=== PATIENT | male | born 1950 | race Caucasian/White ===

== ENCOUNTER 2018-03-16 14:26 | Inpatient (IN) | payer MEDICARE ==
[~2018-03-16] VITALS: Ht 198.1 cm; Wt 73.1 kg
[~2018-03-16 14:26] MED LIST: AZIT500T5 PO; DIAZ10TA PO; FLEXERIL PO; GABA-827 PO; IBUP-1223 PO; MORP30TA PO; MORP30TA3 PO; OXYCODONE PO; [UNRECOGNIZED DRUG - CODE] PO
[2018-03-16] MEDS ORDERED: ASPIRIN 81 MG TABLET CHEW ONE (15:17)
[2018-03-16 15:22] LABS: BASOPHILS # (AUTO) 0.03 x10^3/uL (0-0.1); BASOPHILS % (AUTO) 1 % (0-1); EOSINOPHILS # (AUTO) 0.09 x10^3/uL (0-0.4); EOSINOPHILS % (AUTO) 2 % (1-7); LYMPHOCYTES # (AUTO) 1.11 x10^3/uL (1-3.4); LYMPHOCYTES % (AUTO) 21 % (22-44); MD NO; MEAN CORPUSCULAR HEMOGLOBIN 31.2 pg (27.5-34.5); MEAN CORPUSCULAR HGB CONC 33.1 g/dL (33.2-36.2); MEAN CORPUSCULAR VOLUME 94.4 fL (81-97); MEAN PLATELET VOLUME 8.2 fL (7.4-10.4); MONOCYTES % (AUTO) 9 % (2-9); NEUTROPHILS # (AUTO) 3.68 x10^3/uL (1.8-6.8); NEUTROPHILS % (AUTO) 68 % (42-75); PLATELET COUNT 185 x10^3/uL (130-400); RED BLOOD COUNT 5.62 x10^6/uL (4.38-5.82); RED CELL DISTRIBUTION WIDTH 15.4 % (9.4-14.8); TROPONIN I < 0.015 ng/mL (0.000-0.045)
[2018-03-16 15:24] LABS: ALANINE AMINOTRANSFERASE 26 U/L (12-78); ALBUMIN 3.1 g/dL (3.4-5.0); ANION GAP 9 mmol/L (5-15); CALCIUM 7.9 mg/dL (8.5-10.1); CHLORIDE 106 mmol/L (98-107); CREATININE 0.96 mg/dL (0.7-1.3)
[2018-03-16 15:28] LABS: ALKALINE PHOSPHATASE 79 U/L (45-117); BILIRUBIN,TOTAL 0.7 mg/dL (0.2-1.0); TOTAL PROTEIN 7.9 g/dL (6.4-8.2)
[2018-03-16] MEDS ORDERED: SODIUM CHLORIDE FLUSH 10ML SYR IVF ONE (15:30)
[2018-03-16] MEDS ORDERED: ASPIRIN 81 MG TABLET CHEW PO ONE (15:30)
[2018-03-16] MEDS ORDERED: ONDANSETRON 2MG/ML, 2ML IVPush PRN (16:30)
[2018-03-16] MEDS ORDERED: BISACODYL 10 MG SUPP PR PRN (16:30)
[2018-03-16] MEDS ORDERED: ONDANSETRON ODT 4 MG PO PRN (16:30)
[2018-03-16] MEDS ORDERED: ENALAPRILAT 1.25 MG/ML, 2ML IVPush PRN (16:30)
[2018-03-16] MEDS ORDERED: DOCUSATE 100 MG CAPSULE PO PRN (16:30)
[2018-03-16] MEDS ORDERED: ACETAMINOPHEN 325 MG TABLET PO PRN (16:30)
[2018-03-16] MEDS ORDERED: ENOXAPARIN 40 MG/0.4 ML SQ SCH (16:30)
[2018-03-16] MEDS ORDERED: LABETALOL 5MG/ML, 20ML IVPush PRN (16:30)
[2018-03-16] MEDS ORDERED: OMNIPAQUE 350 MG/ML, 100ML BOTTLE ONE (16:47)
[2018-03-16 17:26] LABS: HEMOGLOBIN A1C 6.2 % (4.2-6.3)
[2018-03-16] MEDS ORDERED: ALBUTEROL SULFATE 2.5 MG/3 ML NPPB PRN (17:30)
[2018-03-16] MEDS ORDERED: ENOXAPARIN 40 MG/0.4 ML ONE (18:03)
[2018-03-16] MEDS ORDERED: HEPARIN 25,000 UNITS/500ML PMX 500 ML ONE (18:38)
[2018-03-16 18:53] VITALS: BP 127/88
[2018-03-16] MEDS ORDERED: HEPARIN 5,000 UNITS/ML, 1ML IV ONE (19:00)
[2018-03-16] MEDS: HEPARIN 25,000 UNITS/500ML PMX 500 ML IV PRN (20:17)
[2018-03-16] MEDS: NICOTINE 7 MG/24 HR PATCH.TD24 TD SCH (20:29)
[2018-03-16] MEDS: LACTULOSE 10 GM/15 ML UDC PO SCH (20:30)
[2018-03-16] MEDS: GABAPENTIN 400 MG CAPSULE PO SCH (20:30)
[2018-03-16] MEDS: OxyconTIN ER 10 MG TAB.ER PO SCH ×2 (20:30→21:00)
[2018-03-16] MEDS: DIAZEPAM 5 MG TABLET PO SCH ×2 (20:30→21:00)
[2018-03-16 20:39] LABS: TROPONIN I < 0.015 ng/mL (0.000-0.045)
[2018-03-16 22:26] VITALS: BP 127/88
[2018-03-17 00:42] VITALS: BP 93/61
[2018-03-17 02:32] LABS: BASOPHILS # (AUTO) 0.02 x10^3/uL (0-0.1); BASOPHILS % (AUTO) 0 % (0-1); EOSINOPHILS # (AUTO) 0.13 x10^3/uL (0-0.4); EOSINOPHILS % (AUTO) 2 % (1-7); LYMPHOCYTES # (AUTO) 1.38 x10^3/uL (1-3.4); LYMPHOCYTES % (AUTO) 24 % (22-44); MD NO; MEAN CORPUSCULAR HGB CONC 33.7 g/dL (33.2-36.2); MEAN PLATELET VOLUME 8.3 fL (7.4-10.4); MONOCYTES % (AUTO) 11 % (2-9); NEUTROPHILS # (AUTO) 3.51 x10^3/uL (1.8-6.8); NEUTROPHILS % (AUTO) 62 % (42-75); PLATELET COUNT 163 x10^3/uL (130-400); RED BLOOD COUNT 4.98 x10^6/uL (4.38-5.82); RED CELL DISTRIBUTION WIDTH 15.9 % (9.4-14.8)
[2018-03-17 02:45] LABS: ALANINE AMINOTRANSFERASE 18 U/L (12-78); ALBUMIN 2.4 g/dL (3.4-5.0); ANION GAP 6 mmol/L (5-15); CHLORIDE 111 mmol/L (98-107); CHOLESTEROL, TOTAL 136 mg/dL (140-239); CREATININE 0.96 mg/dL (0.7-1.3)
[2018-03-17 02:47] LABS: TROPONIN I < 0.015 ng/mL (0.000-0.045)
[2018-03-17 02:48] LABS: ALKALINE PHOSPHATASE 62 U/L (45-117); BILIRUBIN,TOTAL 0.5 mg/dL (0.2-1.0); HDL CHOL % 33 % (26-37); HDL CHOLESTEROL (DIRECT) 45 mg/dL (40-60); LDL CHOLESTEROL,CALCULATED 81 mg/dL (54-169); LDL/HDL RATIO 1.8 (0.5-3.0); TOTAL PROTEIN 6.2 g/dL (6.4-8.2); TRIGLYCERIDES 52 mg/dL (50-200); VLDL CHOLESTEROL 10 mg/dL (0-25)
[2018-03-17] MEDS: HEPARIN 5,000 UNITS/ML, 1ML IV PRN ×3 (03:36→17:19)
[2018-03-17 07:50] VITALS: BP 104/75
[2018-03-17] MEDS: LACTULOSE 10 GM/15 ML UDC PO SCH ×2 (09:00→20:06)
[2018-03-17] MEDS: OxyconTIN ER 10 MG TAB.ER PO SCH ×3 (09:17→20:22)
[2018-03-17] MEDS: SENNA/DOCUSATE TABLET PO SCH (09:17)
[2018-03-17] MEDS: GABAPENTIN 400 MG CAPSULE PO SCH ×3 (09:17→20:22)
[2018-03-17 09:54] LABS: MICROSCOPIC NOT IND
[2018-03-17 09:59] LABS: CULTURE INDICATED? NO
[2018-03-17 12:30] VITALS: BP 99/64
[2018-03-17 20:08] VITALS: BP 115/76
[2018-03-17] MEDS: DIAZEPAM 5 MG TABLET PO SCH (20:22)
[2018-03-17] MEDS: NICOTINE 7 MG/24 HR PATCH.TD24 TD SCH (20:22)
[2018-03-17] MEDS: HEPARIN 25,000 UNITS/500ML PMX 500 ML IV PRN (20:27)
[2018-03-18 00:33] VITALS: BP 105/65
[2018-03-18] MEDS: HEPARIN 5,000 UNITS/ML, 1ML IV PRN ×2 (06:15→13:06)
[2018-03-18 07:15] VITALS: BP 116/78
[2018-03-18] MEDS: LACTULOSE 10 GM/15 ML UDC PO SCH ×2 (08:27→19:47)
[2018-03-18] MEDS: GABAPENTIN 400 MG CAPSULE PO SCH ×3 (08:28→20:41)
[2018-03-18] MEDS: SENNA/DOCUSATE TABLET PO SCH (08:28)
[2018-03-18] MEDS: OxyconTIN ER 10 MG TAB.ER PO SCH ×3 (08:28→20:41)
[2018-03-18 13:00] VITALS: BP 104/69
[2018-03-18] MEDS ORDERED: APIXABAN 5 MG TABLET PO ONE (18:00)
[2018-03-18 20:29] VITALS: BP 102/61
[2018-03-18] MEDS: NICOTINE 7 MG/24 HR PATCH.TD24 TD SCH (20:41)
[2018-03-18] MEDS: DIAZEPAM 5 MG TABLET PO SCH (20:41)
[2018-03-19 01:35] VITALS: BP 104/69
[2018-03-19 07:58] VITALS: BP 96/61
[2018-03-19] MEDS: APIXABAN 5 MG TABLET PO SCH ×2 (10:40→20:37)
[2018-03-19] MEDS: GABAPENTIN 400 MG CAPSULE PO SCH ×3 (10:43→20:37)
[2018-03-19] MEDS: SENNA/DOCUSATE TABLET PO SCH (10:44)
[2018-03-19] MEDS: LACTULOSE 10 GM/15 ML UDC PO SCH ×2 (10:44→20:38)
[2018-03-19] MEDS: OxyconTIN ER 10 MG TAB.ER PO SCH ×3 (10:44→20:38)
[2018-03-19 12:18] LABS: BASOPHILS # (AUTO) 0.05 x10^3/uL (0-0.1); BASOPHILS % (AUTO) 1 % (0-1); EOSINOPHILS # (AUTO) 0.16 x10^3/uL (0-0.4); EOSINOPHILS % (AUTO) 3 % (1-7); LYMPHOCYTES # (AUTO) 1.32 x10^3/uL (1-3.4); LYMPHOCYTES % (AUTO) 28 % (22-44); MD NO; MEAN CORPUSCULAR HEMOGLOBIN 32.2 pg (27.5-34.5); MEAN CORPUSCULAR HGB CONC 33.4 g/dL (33.2-36.2); MEAN CORPUSCULAR VOLUME 96.3 fL (81-97); MEAN PLATELET VOLUME 8.2 fL (7.4-10.4); MONOCYTES # (AUTO) 0.57 x10^3/uL (0.2-0.8); MONOCYTES % (AUTO) 12 % (2-9); NEUTROPHILS # (AUTO) 2.71 x10^3/uL (1.8-6.8); NEUTROPHILS % (AUTO) 56 % (42-75); PLATELET COUNT 168 x10^3/uL (130-400); RED CELL DISTRIBUTION WIDTH 15.5 % (9.4-14.8)
[2018-03-19 12:29] LABS: ALBUMIN 2.8 g/dL (3.4-5.0); ANION GAP 4 mmol/L (5-15); CHLORIDE 106 mmol/L (98-107)
[2018-03-19 12:33] LABS: ALANINE AMINOTRANSFERASE 22 U/L (12-78); ALKALINE PHOSPHATASE 73 U/L (45-117); BILIRUBIN,TOTAL 0.5 mg/dL (0.2-1.0); CREATININE 0.96 mg/dL (0.7-1.3); TOTAL PROTEIN 7.2 g/dL (6.4-8.2)
[2018-03-19] MEDS ORDERED: DEXTROSE 4 GM TAB.CHEW PO PRN (13:30)
[2018-03-19] MEDS ORDERED: DEXTROSE 50%, 50ML SYRINGE IVPush PRN (13:30)
[2018-03-19] MEDS ORDERED: GLUCAGON 1 MG IM PRN (13:30)
[2018-03-19] MEDS ORDERED: SINCALIDE (KINEVAC) 5 MCG ONE (14:00)
[2018-03-19 16:54] VITALS: BP 106/64
[2018-03-19 20:26] VITALS: BP 91/63
[2018-03-19] MEDS: DIAZEPAM 5 MG TABLET PO SCH (20:38)
[2018-03-19] MEDS: SODIUM CHLORIDE FLUSH 10ML SYR IVF SCH (20:38)
[2018-03-19] MEDS: NICOTINE 7 MG/24 HR PATCH.TD24 TD SCH (20:57)
[2018-03-20 01:18] VITALS: BP 106/68
[2018-03-20 05:49] LABS: BASOPHILS # (AUTO) 0.04 x10^3/uL (0-0.1); BASOPHILS % (AUTO) 1 % (0-1); EOSINOPHILS % (AUTO) 4 % (1-7); LYMPHOCYTES # (AUTO) 1.82 x10^3/uL (1-3.4); LYMPHOCYTES % (AUTO) 34 % (22-44); MD NO; MEAN CORPUSCULAR HEMOGLOBIN 32.1 pg (27.5-34.5); MEAN CORPUSCULAR HGB CONC 33.4 g/dL (33.2-36.2); MEAN CORPUSCULAR VOLUME 95.9 fL (81-97); MEAN PLATELET VOLUME 8.3 fL (7.4-10.4); MONOCYTES # (AUTO) 0.66 x10^3/uL (0.2-0.8); MONOCYTES % (AUTO) 12 % (2-9); NEUTROPHILS # (AUTO) 2.63 x10^3/uL (1.8-6.8); NEUTROPHILS % (AUTO) 49 % (42-75); PLATELET COUNT 175 x10^3/uL (130-400); RED BLOOD COUNT 4.99 x10^6/uL (4.38-5.82); RED CELL DISTRIBUTION WIDTH 15.9 % (9.4-14.8)
[2018-03-20 05:58] LABS: CALCIUM 7.9 mg/dL (8.5-10.1); CHLORIDE 105 mmol/L (98-107)
[2018-03-20 06:02] LABS: ALANINE AMINOTRANSFERASE 22 U/L (12-78); ALBUMIN 2.7 g/dL (3.4-5.0); ALKALINE PHOSPHATASE 76 U/L (45-117); ANION GAP 3 mmol/L (5-15); BILIRUBIN,TOTAL 0.5 mg/dL (0.2-1.0); TOTAL PROTEIN 6.9 g/dL (6.4-8.2)
[2018-03-20 06:55] VITALS: BP 102/66
[2018-03-20 09:41] VITALS: BP 105/70
[2018-03-20] MEDS: LACTULOSE 10 GM/15 ML UDC PO SCH ×2 (09:51→21:00)
[2018-03-20] MEDS: GABAPENTIN 400 MG CAPSULE PO SCH ×3 (09:52→22:30)
[2018-03-20] MEDS: OxyconTIN ER 10 MG TAB.ER PO SCH ×3 (09:52→22:30)
[2018-03-20] MEDS: APIXABAN 5 MG TABLET PO SCH (09:52)
[2018-03-20] MEDS: SODIUM CHLORIDE FLUSH 10ML SYR IVF SCH ×2 (09:52→22:39)
[2018-03-20] MEDS: SENNA/DOCUSATE TABLET PO SCH (09:52)
[2018-03-20 13:45] VITALS: BP 111/71
[2018-03-20 19:00] VITALS: BP 99/55
[2018-03-20] MEDS ORDERED: HEPARIN 5,000 UNITS/ML, 1ML IV ONE (21:00)
[2018-03-20] MEDS: DIAZEPAM 5 MG TABLET PO SCH (22:30)
[2018-03-20] MEDS: NICOTINE 7 MG/24 HR PATCH.TD24 TD SCH (22:31)
[2018-03-20] MEDS: HEPARIN 25,000 UNITS/500ML PMX 500 ML IV PRN (22:41)
[2018-03-21 00:48] VITALS: BP 95/63
[2018-03-21 05:19] LABS: BASOPHILS # (AUTO) 0.04 x10^3/uL (0-0.1); BASOPHILS % (AUTO) 1 % (0-1); EOSINOPHILS # (AUTO) 0.26 x10^3/uL (0-0.4); EOSINOPHILS % (AUTO) 5 % (1-7); LYMPHOCYTES # (AUTO) 1.81 x10^3/uL (1-3.4); LYMPHOCYTES % (AUTO) 32 % (22-44); MD NO; MEAN CORPUSCULAR HGB CONC 33.5 g/dL (33.2-36.2); MEAN CORPUSCULAR VOLUME 95.4 fL (81-97); MEAN PLATELET VOLUME 7.9 fL (7.4-10.4); MONOCYTES % (AUTO) 11 % (2-9); NEUTROPHILS # (AUTO) 2.98 x10^3/uL (1.8-6.8); NEUTROPHILS % (AUTO) 52 % (42-75); PLATELET COUNT 165 x10^3/uL (130-400); RED CELL DISTRIBUTION WIDTH 15.7 % (9.4-14.8)
[2018-03-21 05:30] LABS: ALANINE AMINOTRANSFERASE 24 U/L (12-78); ALBUMIN 2.6 g/dL (3.4-5.0); ANION GAP 5 mmol/L (5-15); CALCIUM 8.2 mg/dL (8.5-10.1); CHLORIDE 104 mmol/L (98-107)
[2018-03-21 05:32] LABS: ALKALINE PHOSPHATASE 79 U/L (45-117); BILIRUBIN,TOTAL 0.6 mg/dL (0.2-1.0); CREATININE 1.06 mg/dL (0.7-1.3)
[2018-03-21] MEDS: HEPARIN 5,000 UNITS/ML, 1ML IV PRN ×2 (05:59→19:19)
[2018-03-21 07:55] VITALS: BP 96/60
[2018-03-21] MEDS: GABAPENTIN 400 MG CAPSULE PO SCH ×3 (08:26→21:55)
[2018-03-21] MEDS: SENNA/DOCUSATE TABLET PO SCH (08:27)
[2018-03-21] MEDS: OxyconTIN ER 10 MG TAB.ER PO SCH ×3 (08:27→21:55)
[2018-03-21] MEDS: LACTULOSE 10 GM/15 ML UDC PO SCH ×2 (08:28→21:54)
[2018-03-21] MEDS: SODIUM CHLORIDE FLUSH 10ML SYR IVF SCH ×2 (09:00→21:54)
[2018-03-21 11:46] VITALS: BP_SYST 92; BP_SYST 93; BP_SYST 94; BP_DIAS 58; BP_DIAS 60; BP_DIAS 68
[2018-03-21 13:05] VITALS: BP_SYST 110; BP_SYST 86; BP_DIAS 47; BP_DIAS 79
[2018-03-21] MEDS ORDERED: CEFAZOLIN PMX 1GM/50ML 50 ML IVPB ONE ×2 (14:00→17:00)
[2018-03-21] MEDS ORDERED: SODIUM CHLORIDE 0.9% 1,000 ML IV ONE (16:40)
[2018-03-21 19:06] VITALS: BP 98/63
[2018-03-21] MEDS: NICOTINE 7 MG/24 HR PATCH.TD24 TD SCH (20:30)
[2018-03-21] MEDS: DIAZEPAM 5 MG TABLET PO SCH (21:55)
[2018-03-21] MEDS: HEPARIN 25,000 UNITS/500ML PMX 500 ML IV PRN (22:02)
[2018-03-22] MEDS: SODIUM CHLORIDE 0.9% 1,000 ML IV SCH ×7 (00:29→14:05)
[2018-03-22 01:11] VITALS: BP 97/62
[2018-03-22] MEDS: SODIUM CHLORIDE FLUSH 10ML SYR IVF SCH ×2 (07:49→20:10)
[2018-03-22] MEDS: GABAPENTIN 400 MG CAPSULE PO SCH ×3 (07:56→19:57)
[2018-03-22] MEDS: LACTULOSE 10 GM/15 ML UDC PO SCH ×2 (07:56→19:56)
[2018-03-22] MEDS: OxyconTIN ER 10 MG TAB.ER PO SCH ×3 (07:56→19:57)
[2018-03-22] MEDS: SENNA/DOCUSATE TABLET PO SCH (07:56)
[2018-03-22 08:05] VITALS: BP 88/60
[2018-03-22 08:16] VITALS: BP 93/62
[2018-03-22] MEDS ORDERED: TICAGRELOR 90 MG TABLET ONE (11:12)
[2018-03-22] MEDS ORDERED: BIVALIRUDIN 250 MG ONE (11:12)
[2018-03-22] MEDS ORDERED: HEPARIN 1,000 UNITS/ML, 10ML ONE (11:12)
[2018-03-22] MEDS ORDERED: MIDAZOLAM 1 MG/ML, 5ML ONE ×2 (11:12→12:03)
[2018-03-22] MEDS ORDERED: FENTANYL PF 100 MCG/2ML ONE ×2 (11:12→12:03)
[2018-03-22] MEDS ORDERED: VERAPAMIL 2.5 MG/ML, 2ML ONE (11:12)
[2018-03-22] MEDS ORDERED: LIDOCAINE 2%, 2ML ONE (11:26)
[2018-03-22] MEDS ORDERED: SODIUM CHLORIDE 0.9% 1,000 ML IV SCH (11:56)
[2018-03-22] MEDS ORDERED: CEFAZOLIN PMX 1GM/50ML 50 ML ONE (12:03)
[2018-03-22] MEDS ORDERED: CEFAZOLIN 1,000 MG ONE (12:03)
[2018-03-22] MEDS ORDERED: LIDOCAINE/PF 1%, 30ML ONE (12:10)
[2018-03-22 13:58] VITALS: BP 129/83
[2018-03-22] MEDS ORDERED: ACETAMINOPHEN 325 MG TABLET PO PRN (14:00)
[2018-03-22] MEDS ORDERED: CEFAZOLIN PMX 1GM/50ML 50 ML IVPB SCH (14:00)
[2018-03-22 19:53] VITALS: BP 106/68
[2018-03-22] MEDS: CEFAZOLIN 1,000 MG in SODIUM CHLORIDE 0.9% 50 ML IVPB SCH (19:56)
[2018-03-22] MEDS: NICOTINE 7 MG/24 HR PATCH.TD24 TD SCH (19:59)
[2018-03-22 20:15] VITALS: BP 89/72
[2018-03-23] MEDS: SODIUM CHLORIDE 0.9% 1,000 ML IV SCH ×3 (00:40→16:40)
[2018-03-23 02:22] VITALS: BP 104/75
[2018-03-23] MEDS: CEFAZOLIN 1,000 MG in SODIUM CHLORIDE 0.9% 50 ML IVPB SCH (05:35)
[2018-03-23 05:51] LABS: ALANINE AMINOTRANSFERASE 27 U/L (12-78); ALBUMIN 2.7 g/dL (3.4-5.0); ANION GAP 3 mmol/L (5-15); CALCIUM 8.7 mg/dL (8.5-10.1); CHLORIDE 104 mmol/L (98-107)
[2018-03-23 05:54] LABS: ALKALINE PHOSPHATASE 64 U/L (45-117); BILIRUBIN,TOTAL 0.9 mg/dL (0.2-1.0); CREATININE 0.75 mg/dL (0.7-1.3); TOTAL PROTEIN 7.2 g/dL (6.4-8.2)
[2018-03-23 05:56] LABS: BASOPHILS # (AUTO) 0.03 x10^3/uL (0-0.1); BASOPHILS % (AUTO) 1 % (0-1); EOSINOPHILS # (AUTO) 0.26 x10^3/uL (0-0.4); EOSINOPHILS % (AUTO) 5 % (1-7); LYMPHOCYTES % (AUTO) 30 % (22-44); MD NO; MEAN CORPUSCULAR HEMOGLOBIN 31.9 pg (27.5-34.5); MEAN CORPUSCULAR HGB CONC 33.6 g/dL (33.2-36.2); MEAN CORPUSCULAR VOLUME 95.2 fL (81-97); MEAN PLATELET VOLUME 8.3 fL (7.4-10.4); MONOCYTES # (AUTO) 0.67 x10^3/uL (0.2-0.8); MONOCYTES % (AUTO) 13 % (2-9); NEUTROPHILS # (AUTO) 2.56 x10^3/uL (1.8-6.8); NEUTROPHILS % (AUTO) 51 % (42-75); PLATELET COUNT 154 x10^3/uL (130-400); RED BLOOD COUNT 4.97 x10^6/uL (4.38-5.82); RED CELL DISTRIBUTION WIDTH 15.6 % (9.4-14.8)
[2018-03-23 07:40] VITALS: BP 107/73
[2018-03-23] MEDS: GABAPENTIN 400 MG CAPSULE PO SCH ×3 (07:43→20:50)
[2018-03-23] MEDS: SENNA/DOCUSATE TABLET PO SCH (07:43)
[2018-03-23] MEDS: OxyconTIN ER 10 MG TAB.ER PO SCH ×3 (07:44→20:49)
[2018-03-23] MEDS: SODIUM CHLORIDE FLUSH 10ML SYR IVF SCH ×2 (07:44→20:52)
[2018-03-23] MEDS: APIXABAN 5 MG TABLET PO SCH ×2 (10:46→20:49)
[2018-03-23] MEDS: DOXYCYCLINE 100MG TABLET PO SCH ×2 (10:46→20:49)
[2018-03-23] MEDS: CEFTRIAXONE PMX 1GM/50ML 50 ML IV SCH (11:20)
[2018-03-23] MEDS: LACTULOSE 10 GM/15 ML UDC PO SCH ×2 (12:00→20:49)
[2018-03-23 14:05] VITALS: BP 94/62
[2018-03-23 20:25] VITALS: BP 96/56
[2018-03-23] MEDS: NICOTINE 7 MG/24 HR PATCH.TD24 TD SCH (20:50)
[2018-03-24] VITALS (9 sets, daily range): BP systolic 81–98; BP diastolic 34–67
[2018-03-24] MEDS: SODIUM CHLORIDE 0.9% 1,000 ML IV SCH (00:40)
[2018-03-24] MEDS ORDERED: SODIUM CHLORIDE 0.9%, 250ML IVBOLUS ONE ×2 (05:00→11:30)
[2018-03-24] MEDS: SODIUM CHLORIDE FLUSH 10ML SYR IVF SCH ×2 (08:58→20:45)
[2018-03-24] MEDS: SENNA/DOCUSATE TABLET PO SCH (08:58)
[2018-03-24] MEDS: LACTULOSE 10 GM/15 ML UDC PO SCH ×2 (08:58→20:43)
[2018-03-24] MEDS: GABAPENTIN 400 MG CAPSULE PO SCH (08:59)
[2018-03-24] MEDS: APIXABAN 5 MG TABLET PO SCH ×2 (08:59→20:43)
[2018-03-24] MEDS: DOXYCYCLINE 100MG TABLET PO SCH ×2 (08:59→20:44)
[2018-03-24] MEDS: OxyconTIN ER 10 MG TAB.ER PO SCH (08:59)
[2018-03-24] MEDS: CEFTRIAXONE PMX 1GM/50ML 50 ML IV SCH (12:03)
[2018-03-24] MEDS ORDERED: COSYNTROPIN 0.25 MG IM ONE (13:30)
[2018-03-24] MEDS: GABAPENTIN 300 MG CAPSULE PO SCH ×2 (16:00→20:44)
[2018-03-24 17:23] LABS: FREE T4 (FREE THYROXINE) 0.86 ng/dL (0.76-1.46); THYROID STIMULATING HORMONE 8.25 mIU/L (0.358-3.740)
[2018-03-24] MEDS: HYDROCORTISONE 100 MG INJ. IVPush SCH (17:36)
[2018-03-24] MEDS: NICOTINE 7 MG/24 HR PATCH.TD24 TD SCH (20:44)
[2018-03-24] MEDS: OxyconTIN ER 20 MG TAB.ER PO PRN (20:44)
[2018-03-25 01:02] VITALS: BP 91/60
[2018-03-25] MEDS: HYDROCORTISONE 100 MG INJ. IVPush SCH ×3 (01:07→17:00)
[2018-03-25 03:25] VITALS: BP 100/65
[2018-03-25] MEDS: LEVOTHYROXINE 25 MCG TABLET PO SCH (05:02)
[2018-03-25] MEDS: OxyconTIN ER 20 MG TAB.ER PO PRN (05:03)
[2018-03-25 07:16] LABS: BASOPHILS % (AUTO) 0 % (0-1); EOSINOPHILS % (AUTO) 0 % (1-7); LYMPHOCYTES # (AUTO) 0.84 x10^3/uL (1-3.4); LYMPHOCYTES % (AUTO) 10 % (22-44); MEAN CORPUSCULAR HEMOGLOBIN 31.5 pg (27.5-34.5); MEAN CORPUSCULAR HGB CONC 33.1 g/dL (33.2-36.2); MEAN CORPUSCULAR VOLUME 95.1 fL (81-97); MEAN PLATELET VOLUME 8.2 fL (7.4-10.4); MONOCYTES # (AUTO) 0.25 x10^3/uL (0.2-0.8); MONOCYTES % (AUTO) 3 % (2-9); NEUTROPHILS # (AUTO) 7.74 x10^3/uL (1.8-6.8); NEUTROPHILS % (AUTO) 88 % (42-75); PLATELET COUNT 166 x10^3/uL (130-400); RED BLOOD COUNT 5.45 x10^6/uL (4.38-5.82); RED CELL DISTRIBUTION WIDTH 15.5 % (9.4-14.8)
[2018-03-25 07:20] LABS: MD NO
[2018-03-25 07:28] LABS: ALANINE AMINOTRANSFERASE 32 U/L (12-78); ANION GAP 4 mmol/L (5-15); CALCIUM 8.8 mg/dL (8.5-10.1); CHLORIDE 104 mmol/L (98-107)
[2018-03-25 07:30] LABS: ALKALINE PHOSPHATASE 91 U/L (45-117); BILIRUBIN,TOTAL 0.5 mg/dL (0.2-1.0); CREATININE 0.94 mg/dL (0.7-1.3)
[2018-03-25 07:50] VITALS: BP 93/66
[2018-03-25] MEDS: SODIUM CHLORIDE FLUSH 10ML SYR IVF SCH ×2 (08:28→21:33)
[2018-03-25] MEDS: LACTULOSE 10 GM/15 ML UDC PO SCH ×2 (08:34→21:00)
[2018-03-25] MEDS: APIXABAN 5 MG TABLET PO SCH ×2 (08:34→21:33)
[2018-03-25] MEDS: DOXYCYCLINE 100MG TABLET PO SCH ×2 (08:34→21:34)
[2018-03-25] MEDS: GABAPENTIN 300 MG CAPSULE PO SCH ×3 (08:34→21:34)
[2018-03-25] MEDS: SENNA/DOCUSATE TABLET PO SCH (08:36)
[2018-03-25] MEDS ORDERED: APIXABAN 5 MG TABLET PO SCH (09:00)
[2018-03-25] MEDS ORDERED: OxyconTIN ER 15 MG TAB.ER PO SCH ×2 (09:30)
[2018-03-25] MEDS ORDERED: MORPHINE SULFATE 4 MG/ML, 1ML IVPush ONE (09:30)
[2018-03-25 09:58] VITALS: BP 112/75
[2018-03-25] MEDS: FLUDROCORTISONE 0.1 MG TABLET PO SCH (09:58)
[2018-03-25] MEDS: CEFTRIAXONE PMX 1GM/50ML 50 ML IV SCH (11:05)
[2018-03-25] MEDS ORDERED: OxyconTIN ER 20 MG TAB.ER ONE (12:53)
[2018-03-25] MEDS ORDERED: OxyconTIN ER 10 MG TAB.ER ONE ×2 (12:53→23:38)
[2018-03-25] MEDS: OxyconTIN ER 15 MG TAB.ER PO PRN ×2 (12:55→23:40)
[2018-03-25 13:25] VITALS: BP 93/62
[2018-03-25 20:23] VITALS: BP 89/59
[2018-03-25] MEDS: NICOTINE 7 MG/24 HR PATCH.TD24 TD SCH (21:33)
[2018-03-25] MEDS ORDERED: OMNIPAQUE 350 MG/ML, 100ML BOTTLE ONE (23:16)
[2018-03-26 00:11] VITALS: BP 99/66
[2018-03-26 04:34] LABS: BASOPHILS % (AUTO) 0 % (0-1); EOSINOPHILS % (AUTO) 0 % (1-7); LYMPHOCYTES % (AUTO) 8 % (22-44); MD NO; MEAN CORPUSCULAR HEMOGLOBIN 31.7 pg (27.5-34.5); MEAN CORPUSCULAR HGB CONC 33.2 g/dL (33.2-36.2); MEAN CORPUSCULAR VOLUME 95.6 fL (81-97); MEAN PLATELET VOLUME 8.8 fL (7.4-10.4); MONOCYTES # (AUTO) 0.31 x10^3/uL (0.2-0.8); MONOCYTES % (AUTO) 3 % (2-9); NEUTROPHILS # (AUTO) 10.53 x10^3/uL (1.8-6.8); NEUTROPHILS % (AUTO) 89 % (42-75); PLATELET COUNT 161 x10^3/uL (130-400); RED BLOOD COUNT 5.24 x10^6/uL (4.38-5.82); RED CELL DISTRIBUTION WIDTH 15.4 % (9.4-14.8)
[2018-03-26 04:42] LABS: ALBUMIN 2.9 g/dL (3.4-5.0); ANION GAP 5 mmol/L (5-15); CALCIUM 8.7 mg/dL (8.5-10.1); CHLORIDE 106 mmol/L (98-107)
[2018-03-26 04:43] LABS: CREATININE 0.78 mg/dL (0.7-1.3)
[2018-03-26] MEDS: LEVOTHYROXINE 25 MCG TABLET PO SCH (05:31)
[2018-03-26 07:38] VITALS: BP 97/71
[2018-03-26] MEDS ORDERED: OxyconTIN ER 10 MG TAB.ER ONE ×3 (08:57→20:23)
[2018-03-26] MEDS ORDERED: OxyconTIN ER 20 MG TAB.ER ONE ×2 (08:57→20:23)
[2018-03-26] MEDS: LACTULOSE 10 GM/15 ML UDC PO SCH ×2 (09:00→20:31)
[2018-03-26] MEDS: SENNA/DOCUSATE TABLET PO SCH (09:00)
[2018-03-26] MEDS: DOXYCYCLINE 100MG TABLET PO SCH ×2 (09:00→20:32)
[2018-03-26] MEDS: SODIUM CHLORIDE FLUSH 10ML SYR IVF SCH ×2 (09:01→20:30)
[2018-03-26] MEDS: APIXABAN 5 MG TABLET PO SCH ×2 (09:01→20:31)
[2018-03-26] MEDS: GABAPENTIN 300 MG CAPSULE PO SCH ×3 (09:01→20:31)
[2018-03-26] MEDS: FLUDROCORTISONE 0.1 MG TABLET PO SCH (09:01)
[2018-03-26] MEDS: OxyconTIN ER 15 MG TAB.ER PO PRN ×2 (09:02→20:33)
[2018-03-26] MEDS: CEFTRIAXONE PMX 1GM/50ML 50 ML IV SCH (11:41)
[2018-03-26 14:28] VITALS: BP 97/64
[2018-03-26 19:24] VITALS: BP 93/55
[2018-03-26] MEDS ORDERED: GABAPENTIN 400 MG CAPSULE ONE (20:22)
[2018-03-26] MEDS ORDERED: GABAPENTIN 100 MG CAPSULE ONE (20:23)
[2018-03-26] MEDS: NICOTINE 7 MG/24 HR PATCH.TD24 TD SCH (20:30)
[2018-03-27 00:15] VITALS: BP 106/70
[2018-03-27] MEDS: LEVOTHYROXINE 25 MCG TABLET PO SCH (06:00)
[2018-03-27 07:20] LABS: BASOPHILS # (AUTO) 0.05 x10^3/uL (0-0.1); BASOPHILS % (AUTO) 1 % (0-1); EOSINOPHILS # (AUTO) 0.04 x10^3/uL (0-0.4); EOSINOPHILS % (AUTO) 0 % (1-7); LYMPHOCYTES # (AUTO) 2.12 x10^3/uL (1-3.4); LYMPHOCYTES % (AUTO) 23 % (22-44); MD NO; MEAN CORPUSCULAR HEMOGLOBIN 31.8 pg (27.5-34.5); MEAN CORPUSCULAR HGB CONC 33.5 g/dL (33.2-36.2); MEAN PLATELET VOLUME 8.6 fL (7.4-10.4); MONOCYTES # (AUTO) 0.52 x10^3/uL (0.2-0.8); MONOCYTES % (AUTO) 6 % (2-9); NEUTROPHILS % (AUTO) 71 % (42-75); PLATELET COUNT 164 x10^3/uL (130-400); RED BLOOD COUNT 5.09 x10^6/uL (4.38-5.82); RED CELL DISTRIBUTION WIDTH 15.7 % (9.4-14.8)
[2018-03-27 07:30] LABS: ALBUMIN 2.8 g/dL (3.4-5.0); ANION GAP 5 mmol/L (5-15); CALCIUM 8.6 mg/dL (8.5-10.1); CHLORIDE 106 mmol/L (98-107); CREATININE 0.79 mg/dL (0.7-1.3)
[2018-03-27 07:41] VITALS: BP 126/75
[2018-03-27] MEDS ORDERED: CEFDINIR 300 MG CAPSULE PO SCH (09:00)
[2018-03-27] MEDS: SODIUM CHLORIDE FLUSH 10ML SYR IVF SCH (09:00)
[2018-03-27] MEDS: GABAPENTIN 300 MG CAPSULE PO SCH (10:24)
[2018-03-27] MEDS: LACTULOSE 10 GM/15 ML UDC PO SCH (10:24)
[2018-03-27] MEDS: APIXABAN 5 MG TABLET PO SCH (10:25)
[2018-03-27] MEDS: SENNA/DOCUSATE TABLET PO SCH (10:26)
[2018-03-27] MEDS: FLUDROCORTISONE 0.1 MG TABLET PO SCH (10:27)
[2018-03-27] MEDS: DOXYCYCLINE 100MG TABLET PO SCH (10:27)
[2018-03-27 12:34] VITALS: BP 129/80
[2018-03-27] MEDS ORDERED: CEFD300C37 PO (14:21)
[2018-03-27] MEDS ORDERED: DOXY100T PO (14:21)
[2018-03-27] MEDS ORDERED: PRED20TA PO (14:21)
[2018-03-27] MEDS ORDERED: FLUD0.1T PO (14:21)
[2018-03-27] MEDS ORDERED: APIX5TAB PO ×2 (14:21→14:23)
[2018-03-27] MEDS ORDERED: LEVO25TA2 PO (14:21)
== END 2018-03-27 16:14 | disposition home or self-care (01) | DRG 242 ==
LOC: ED 16:04 → EDIP 16:20 → 5SO 18:46 → DCLOUNGE 03-27 15:53
PROVIDERS: ADMIT Hospitalist; ATTEND Hospitalist
PROC: 0JH606Z Insertion of Pacemaker, Dual Chamber into Chest Subcutaneous Tissue and Fascia, Open Approach (ICD-10-PCS; principal; 2018-03-22)
PROC: 02H63JZ Insertion of Pacemaker Lead into Right Atrium, Percutaneous Approach (ICD-10-PCS; 2018-03-22)
PROC: 02HK3JZ Insertion of Pacemaker Lead into Right Ventricle, Percutaneous Approach (ICD-10-PCS; 2018-03-22)
PROC: 4A023N7 Measurement of Cardiac Sampling and Pressure, Left Heart, Percutaneous Approach (ICD-10-PCS; 2018-03-22)
PROC: B2111ZZ Fluoroscopy of Multiple Coronary Arteries using Low Osmolar Contrast (ICD-10-PCS; 2018-03-22)
PROC: B2151ZZ Fluoroscopy of Left Heart using Low Osmolar Contrast (ICD-10-PCS; 2018-03-22)
DX: I20.0 Unstable angina (principal); I26.99 Other pulmonary embolism without acute cor pulmonale; E43 Unspecified severe protein-calorie malnutrition; J18.9 Pneumonia, unspecified organism; I27.20 Pulmonary hypertension, unspecified; I50.30 Unspecified diastolic (congestive) heart failure; D75.1 Secondary polycythemia; J44.0 Chronic obstructive pulmonary disease with (acute) lower respiratory infection; R64 Cachexia; J98.11 Atelectasis; Z68.1 Body mass index [BMI] 19.9 or less, adult; R00.1 Bradycardia, unspecified; F17.210 Nicotine dependence, cigarettes, uncomplicated; G89.4 Chronic pain syndrome; Z79.82 Long term (current) use of aspirin; Z91.19 Patient's noncompliance with other medical treatment and regimen; Z71.6 Tobacco abuse counseling
CPT/HCPCS: 33208; 36415; 71045; 71275; 74177; 76705; 78227; 80048; 80053; 80061; 81003; 82040; 82533; 82962; 83036; 83690; 83735; 83880; 84100; 84439; 84443; 84484; 85025; 85520; 87040; 87070; 87205; 93005; 93306; 93458; 93970; 96372; 99156; 99291; C1769; C1779; C1785; C1892; C1894; J0583; J0690; J0696; J1644; J1650; J2250; J3010; J3490; Q9967; A9537; C9898; J0834; J1720; J2805; J7030; J7050; J7512

== ENCOUNTER 2018-04-17 13:59 | Inpatient (IN) | payer MEDICARE ==
[~2018-04-17] VITALS: Ht 198.1 cm; Wt 78.0 kg
[~2018-04-17 13:59] MED LIST changes: +APIX5TAB PO; +CEFD300C37 PO; +DOXY100T PO; +FLUD0.1T PO; +LEVO25TA2 PO; +PRED20TA PO
[2018-04-17] MEDS ORDERED: SODIUM CHLORIDE FLUSH 10ML SYR IVF ONE ×2 (14:30→15:00)
[2018-04-17] MEDS ORDERED: ALBUTEROL/IPRATROPIUM 2.5MG/0.5MG, 3 ML ONE (14:37)
[2018-04-17 14:42] LABS: BASOPHILS # (AUTO) 0.12 x10^3/uL (0-0.1); BASOPHILS % (AUTO) 1 % (0-1); EOSINOPHILS # (AUTO) 0.04 x10^3/uL (0-0.4); EOSINOPHILS % (AUTO) 0 % (1-7); LYMPHOCYTES # (AUTO) 0.73 x10^3/uL (1-3.4); LYMPHOCYTES % (AUTO) 7 % (22-44); MD NO; MEAN CORPUSCULAR HEMOGLOBIN 31.5 pg (27.5-34.5); MEAN CORPUSCULAR HGB CONC 32.9 g/dL (33.2-36.2); MEAN CORPUSCULAR VOLUME 95.7 fL (81-97); MEAN PLATELET VOLUME 8.4 fL (7.4-10.4); MONOCYTES # (AUTO) 0.57 x10^3/uL (0.2-0.8); MONOCYTES % (AUTO) 6 % (2-9); NEUTROPHILS # (AUTO) 8.74 x10^3/uL (1.8-6.8); NEUTROPHILS % (AUTO) 86 % (42-75); PLATELET COUNT 132 x10^3/uL (130-400); RED BLOOD COUNT 4.66 x10^6/uL (4.38-5.82); RED CELL DISTRIBUTION WIDTH 16.6 % (9.4-14.8)
[2018-04-17 14:52] LABS: ALANINE AMINOTRANSFERASE 42 U/L (12-78); ANION GAP 5 mmol/L (5-15); CHLORIDE 107 mmol/L (98-107); CREATININE 0.93 mg/dL (0.7-1.3)
[2018-04-17 14:55] LABS: ALKALINE PHOSPHATASE 88 U/L (45-117); BILIRUBIN,TOTAL 0.5 mg/dL (0.2-1.0); TOTAL PROTEIN 6.6 g/dL (6.4-8.2)
[2018-04-17] MEDS ORDERED: PIPERACILLIN/TAZO/PMX 3.375GM 50 ML IV ONE (15:00)
[2018-04-17] MEDS ORDERED: CARI350T PO (15:14)
[2018-04-17] MEDS ORDERED: MORPHINE IR PO (15:14)
[2018-04-17] MEDS ORDERED: DIAZ10TA4 PO (15:14)
[2018-04-17] MEDS ORDERED: MORPHINE ER PO (15:14)
[2018-04-17 15:23] LABS: INTERNATIONAL NORMALIZED RATIO 1.04 (0.93-1.1); PROTHROMBIN TIME 10.7 Seconds (9.6-11.5)
[2018-04-17] MEDS ORDERED: OMNIPAQUE 350 MG/ML, 100ML BOTTLE ONE (15:38)
[2018-04-17] MEDS ORDERED: PIPERACILLIN/TAZO/PMX 3.375GM 50 ML ONE (15:41)
[2018-04-17] MEDS ORDERED: ONDANSETRON 2MG/ML, 2ML IVPush PRN (16:00)
[2018-04-17] MEDS ORDERED: OxyconTIN ER 15 MG TAB.ER PO SCH (16:00)
[2018-04-17 16:41] VITALS: BP 130/73
[2018-04-17] MEDS ORDERED: OXYcodone IR 30 MG TABLET PO PRN (17:00)
[2018-04-17] MEDS: GABAPENTIN 400 MG CAPSULE PO SCH ×2 (17:15→23:11)
[2018-04-17 19:52] VITALS: BP 107/68
[2018-04-17] MEDS: ALBUTEROL/IPRATROPIUM 2.5MG/0.5MG, 3 ML NPPB SCH ×2 (20:17→23:01)
[2018-04-17] MEDS: CARISOPRODOL 350 MG TABLET PO SCH (20:27)
[2018-04-18 02:21] VITALS: BP 113/74
[2018-04-18 05:37] LABS: BASOPHILS # (AUTO) 0.01 x10^3/uL (0-0.1); BASOPHILS % (AUTO) 0 % (0-1); EOSINOPHILS # (AUTO) 0.11 x10^3/uL (0-0.4); EOSINOPHILS % (AUTO) 1 % (1-7); LYMPHOCYTES # (AUTO) 1.63 x10^3/uL (1-3.4); LYMPHOCYTES % (AUTO) 21 % (22-44); MD NO; MEAN CORPUSCULAR HEMOGLOBIN 31.8 pg (27.5-34.5); MEAN CORPUSCULAR HGB CONC 33.1 g/dL (33.2-36.2); MEAN CORPUSCULAR VOLUME 96.1 fL (81-97); MEAN PLATELET VOLUME 8.8 fL (7.4-10.4); MONOCYTES # (AUTO) 0.63 x10^3/uL (0.2-0.8); MONOCYTES % (AUTO) 8 % (2-9); NEUTROPHILS # (AUTO) 5.53 x10^3/uL (1.8-6.8); NEUTROPHILS % (AUTO) 70 % (42-75); PLATELET COUNT 109 x10^3/uL (130-400); RED CELL DISTRIBUTION WIDTH 16.5 % (9.4-14.8)
[2018-04-18] MEDS ORDERED: LEVOTHYROXINE 25 MCG TABLET PO SCH (06:00)
[2018-04-18 06:52] VITALS: BP 127/85
[2018-04-18] MEDS: ALBUTEROL/IPRATROPIUM 2.5MG/0.5MG, 3 ML NPPB SCH ×2 (07:08→11:00)
[2018-04-18] MEDS: GABAPENTIN 400 MG CAPSULE PO SCH (08:47)
[2018-04-18] MEDS: CARISOPRODOL 350 MG TABLET PO SCH (08:47)
[2018-04-18] MEDS ORDERED: SULF1TAB24 PO (08:55)
[2018-04-18 09:00] LABS: ANION GAP 6 mmol/L (5-15); CALCIUM 7.7 mg/dL (8.5-10.1); CHLORIDE 108 mmol/L (98-107); CREATININE 1.31 mg/dL (0.7-1.3)
[2018-04-18] MEDS ORDERED: FLUDROCORTISONE 0.1 MG TABLET PO SCH (09:00)
== END 2018-04-18 11:30 | disposition home or self-care (01) | DRG 177 ==
LOC: ED 14:49 → EDIP 14:50 → ED 15:53 → 3NW 16:21 → DCLOUNGE 04-18 11:16
PROVIDERS: ADMIT Internal Medicine; ATTEND Internal Medicine
DX: J69.0 Pneumonitis due to inhalation of food and vomit (principal); J96.00 Acute respiratory failure, unspecified whether with hypoxia or hypercapnia; R04.2 Hemoptysis; D68.9 Coagulation defect, unspecified; J44.0 Chronic obstructive pulmonary disease with (acute) lower respiratory infection; Z68.1 Body mass index [BMI] 19.9 or less, adult; E03.9 Hypothyroidism, unspecified; I95.89 Other hypotension; G89.29 Other chronic pain; F17.210 Nicotine dependence, cigarettes, uncomplicated; R63.4 Abnormal weight loss; R00.1 Bradycardia, unspecified; Z79.01 Long term (current) use of anticoagulants; Z86.711 Personal history of pulmonary embolism; Z87.01 Personal history of pneumonia (recurrent); Z95.0 Presence of cardiac pacemaker
CPT/HCPCS: 36415; 71045; 71275; 80048; 80053; 83605; 84100; 85025; 85610; 87040; 93005; 94640; 96365; J2543; J7620; Q9967; J7512

== ENCOUNTER 2018-06-18 22:56 | Inpatient (IN) | payer MEDICARE ==
[~2018-06-18] VITALS: Ht 198.1 cm; Wt 83.3 kg
[~2018-06-18 22:56] MED LIST changes: +CARI350T PO; +DIAZ10TA4 PO; +MORPHINE ER PO; +MORPHINE IR PO; +SULF1TAB24 PO
[2018-06-18] MEDS ORDERED: ALBUTEROL/IPRATROPIUM 2.5MG/0.5MG, 3 ML NPPB ONE (23:30)
[2018-06-18] MEDS ORDERED: SODIUM CHLORIDE FLUSH 10ML SYR IVF ONE (23:30)
[2018-06-18] MEDS ORDERED: ALBUTEROL/IPRATROPIUM 2.5MG/0.5MG, 3 ML ONE (23:45)
[2018-06-18 23:47] LABS: BASOPHILS # (AUTO) 0.06 x10^3/uL (0-0.1); BASOPHILS % (AUTO) 1 % (0-1); EOSINOPHILS # (AUTO) 0.28 x10^3/uL (0-0.4); EOSINOPHILS % (AUTO) 3 % (1-7); LYMPHOCYTES # (AUTO) 2.32 x10^3/uL (1-3.4); LYMPHOCYTES % (AUTO) 27 % (22-44); MD NO; MEAN CORPUSCULAR HEMOGLOBIN 32.1 pg (27.5-34.5); MEAN CORPUSCULAR HGB CONC 32.6 g/dL (33.2-36.2); MEAN CORPUSCULAR VOLUME 98.5 fL (81-97); MEAN PLATELET VOLUME 6.9 fL (7.4-10.4); MONOCYTES # (AUTO) 0.65 x10^3/uL (0.2-0.8); MONOCYTES % (AUTO) 8 % (2-9); NEUTROPHILS # (AUTO) 5.34 x10^3/uL (1.8-6.8); NEUTROPHILS % (AUTO) 62 % (42-75); PLATELET COUNT 227 x10^3/uL (130-400); RED BLOOD COUNT 4.41 x10^6/uL (4.38-5.82)
[2018-06-19] LABS: ALBUMIN 2.1 g/dL (3.4-5.0); ANION GAP 6 mmol/L (5-15); CALCIUM 7.4 mg/dL (8.5-10.1); CHLORIDE 109 mmol/L (98-107)
[2018-06-19 00:07] LABS: ALANINE AMINOTRANSFERASE 22 U/L (12-78); ALKALINE PHOSPHATASE 144 U/L (45-117); BILIRUBIN,TOTAL 0.7 mg/dL (0.2-1.0); CREATININE 1.19 mg/dL (0.7-1.3); TOTAL PROTEIN 7.7 g/dL (6.4-8.2); TROPONIN I < 0.015 ng/mL (0.000-0.045)
[2018-06-19 00:08] LABS: D-DIMER 13.84 ug/mlFEU (0.00-0.52); INTERNATIONAL NORMALIZED RATIO 1.17 (0.93-1.1)
[2018-06-19] MEDS ORDERED: OMNIPAQUE 350 MG/ML, 100ML BOTTLE ONE (00:55)
[2018-06-19] MEDS ORDERED: PIPERACILLIN/TAZO/PMX 3.375GM 50 ML ONE (01:22)
[2018-06-19] MEDS ORDERED: VANCOMYCIN 1,600 MG in SODIUM CHLORIDE 0.9% 250 ML IV ONE (01:30)
[2018-06-19] MEDS ORDERED: PIPERACILLIN/TAZO/PMX 3.375GM 50 ML IVPB ONE (01:30)
[2018-06-19] MEDS ORDERED: VANCOMYCIN PER PHARMACY IV ONE (01:30)
[2018-06-19] MEDS ORDERED: ONDANSETRON ODT 4 MG PO PRN (04:00)
[2018-06-19] MEDS: SODIUM CHLORIDE 0.9% 1,000 ML IV SCH ×2 (04:28→16:10)
[2018-06-19] MEDS ORDERED: ALBUTEROL/IPRATROPIUM 2.5MG/0.5MG, 3 ML NPPB PRN (04:30)
[2018-06-19] MEDS ORDERED: VANCOMYCIN PER PHARMACY MC PRN (04:30)
[2018-06-19] MEDS ORDERED: PHARMACOKINETIC MONITORING MC PRN (05:00)
[2018-06-19] MEDS ORDERED: PHARMACOKINETIC CONSULTATION MC ONE (05:00)
[2018-06-19 08:59] VITALS: BP 103/73
[2018-06-19] MEDS ORDERED: APIX5TAB PO (11:48)
[2018-06-19] MEDS ORDERED: [UNRECOGNIZED DRUG - CODE] PO (11:48)
[2018-06-19] MEDS: PIPERACILLIN/TAZO/PMX 3.375GM 50 ML IV SCH ×2 (12:11→18:42)
[2018-06-19 13:46] VITALS: BP 92/51
[2018-06-19 19:50] VITALS: BP 90/54
[2018-06-19] MEDS: GABAPENTIN 300 MG CAPSULE PO SCH (20:46)
[2018-06-19] MEDS: APIXABAN 5 MG TABLET PO SCH (20:46)
[2018-06-19] MEDS: CARISOPRODOL 350 MG TABLET PO SCH (20:46)
[2018-06-19] MEDS: VANCOMYCIN 1,600 MG in SODIUM CHLORIDE 0.9% 250 ML IV SCH (20:48)
[2018-06-20] MEDS: PIPERACILLIN/TAZO/PMX 3.375GM 50 ML IV SCH ×3 (01:34→18:28)
[2018-06-20 01:36] VITALS: BP 109/68
[2018-06-20 05:09] LABS: BASOPHILS # (AUTO) 0.09 x10^3/uL (0-0.1); BASOPHILS % (AUTO) 1 % (0-1); EOSINOPHILS # (AUTO) 0.08 x10^3/uL (0-0.4); EOSINOPHILS % (AUTO) 1 % (1-7); LYMPHOCYTES # (AUTO) 2.29 x10^3/uL (1-3.4); LYMPHOCYTES % (AUTO) 23 % (22-44); MD NO; MEAN CORPUSCULAR HEMOGLOBIN 32.1 pg (27.5-34.5); MEAN CORPUSCULAR HGB CONC 32.6 g/dL (33.2-36.2); MEAN CORPUSCULAR VOLUME 98.4 fL (81-97); MONOCYTES % (AUTO) 6 % (2-9); NEUTROPHILS # (AUTO) 6.96 x10^3/uL (1.8-6.8); NEUTROPHILS % (AUTO) 70 % (42-75); PLATELET COUNT 213 x10^3/uL (130-400); RED BLOOD COUNT 4.38 x10^6/uL (4.38-5.82); RED CELL DISTRIBUTION WIDTH 18.7 % (9.4-14.8)
[2018-06-20 05:27] LABS: CALCIUM 7.8 mg/dL (8.5-10.1); CREATININE 1.05 mg/dL (0.7-1.3)
[2018-06-20] MEDS: SODIUM CHLORIDE 0.9% 1,000 ML IV SCH ×2 (05:37→15:36)
[2018-06-20] MEDS: LEVOTHYROXINE 25 MCG TABLET PO SCH (05:37)
[2018-06-20 05:47] LABS: CHLORIDE 114 mmol/L (98-107)
[2018-06-20 05:50] LABS: ANION GAP 5 mmol/L (5-15)
[2018-06-20] MEDS: CARISOPRODOL 350 MG TABLET PO SCH ×2 (09:00→22:27)
[2018-06-20] MEDS: APIXABAN 5 MG TABLET PO SCH ×2 (09:00→22:27)
[2018-06-20] MEDS: FLUDROCORTISONE 0.1 MG TABLET PO SCH (09:00)
[2018-06-20 09:28] VITALS: BP 124/76
[2018-06-20] MEDS: OXYcodone IR 5MG TABLET PO PRN ×2 (10:33→18:25)
[2018-06-20] MEDS: DIAZEPAM 5 MG TABLET PO PRN ×2 (10:33→22:27)
[2018-06-20] MEDS: DIGOXIN 0.125 MG TABLET PO SCH (10:34)
[2018-06-20] MEDS: GABAPENTIN 300 MG CAPSULE PO SCH ×3 (10:34→21:00)
[2018-06-20] MEDS: VANCOMYCIN 1,600 MG in SODIUM CHLORIDE 0.9% 250 ML IV SCH (15:36)
[2018-06-20 15:44] VITALS: BP 110/54
[2018-06-20 20:24] VITALS: BP 111/75
[2018-06-21] MEDS: OXYcodone IR 5MG TABLET PO PRN ×3 (02:15→18:33)
[2018-06-21] MEDS: PIPERACILLIN/TAZO/PMX 3.375GM 50 ML IV SCH ×3 (02:16→18:34)
[2018-06-21] MEDS: GABAPENTIN 300 MG CAPSULE PO SCH ×4 (02:18→22:00)
[2018-06-21 02:26] VITALS: BP 108/78
[2018-06-21] MEDS: SODIUM CHLORIDE 0.9% 1,000 ML IV SCH ×3 (02:26→18:34)
[2018-06-21] MEDS: LEVOTHYROXINE 25 MCG TABLET PO SCH (06:10)
[2018-06-21 07:38] LABS: CHLORIDE 112 mmol/L (98-107); CREATININE 1.12 mg/dL (0.7-1.3)
[2018-06-21 07:42] VITALS: BP 121/87
[2018-06-21 07:45] LABS: BASOPHILS # (AUTO) 0.05 x10^3/uL (0-0.1); BASOPHILS % (AUTO) 1 % (0-1); EOSINOPHILS # (AUTO) 0.37 x10^3/uL (0-0.4); EOSINOPHILS % (AUTO) 5 % (1-7); LYMPHOCYTES % (AUTO) 39 % (22-44); MD NO; MEAN CORPUSCULAR HEMOGLOBIN 31.7 pg (27.5-34.5); MEAN CORPUSCULAR HGB CONC 32.1 g/dL (33.2-36.2); MEAN CORPUSCULAR VOLUME 98.9 fL (81-97); MEAN PLATELET VOLUME 7.3 fL (7.4-10.4); MONOCYTES # (AUTO) 0.52 x10^3/uL (0.2-0.8); MONOCYTES % (AUTO) 7 % (2-9); NEUTROPHILS # (AUTO) 3.78 x10^3/uL (1.8-6.8); NEUTROPHILS % (AUTO) 49 % (42-75); PLATELET COUNT 224 x10^3/uL (130-400); RED BLOOD COUNT 4.79 x10^6/uL (4.38-5.82); RED CELL DISTRIBUTION WIDTH 18.7 % (9.4-14.8)
[2018-06-21 07:49] LABS: ANION GAP 1 mmol/L (5-15)
[2018-06-21] MEDS: CARISOPRODOL 350 MG TABLET PO SCH ×2 (09:00→21:59)
[2018-06-21] MEDS: DIAZEPAM 5 MG TABLET PO PRN (10:23)
[2018-06-21] MEDS: FLUDROCORTISONE 0.1 MG TABLET PO SCH (10:23)
[2018-06-21] MEDS: VANCOMYCIN 1,600 MG in SODIUM CHLORIDE 0.9% 250 ML IV SCH (10:23)
[2018-06-21] MEDS: APIXABAN 5 MG TABLET PO SCH ×2 (10:23→21:59)
[2018-06-21] MEDS: DIGOXIN 0.125 MG TABLET PO SCH (10:23)
[2018-06-21] MEDS: methylPREDNISolone SOD SUCC 125 MG/2 ML IVPush SCH ×2 (10:30→18:33)
[2018-06-21 14:00] VITALS: BP 111/75
[2018-06-21 15:30] VITALS: BP 118/80
[2018-06-21 19:52] VITALS: BP 117/84
[2018-06-22 02:04] VITALS: BP 137/78
[2018-06-22] MEDS: methylPREDNISolone SOD SUCC 125 MG/2 ML IVPush SCH ×2 (02:18→10:10)
[2018-06-22] MEDS: PIPERACILLIN/TAZO/PMX 3.375GM 50 ML IV SCH ×3 (02:18→17:58)
[2018-06-22 02:22] VITALS: BP 114/79
[2018-06-22] MEDS: SODIUM CHLORIDE 0.9% 1,000 ML IV SCH (03:48)
[2018-06-22] MEDS: VANCOMYCIN 1,600 MG in SODIUM CHLORIDE 0.9% 250 ML IV SCH ×2 (04:40→22:30)
[2018-06-22 05:04] LABS: BASOPHILS # (AUTO) 0.01 x10^3/uL (0-0.1); BASOPHILS % (AUTO) 0 % (0-1); EOSINOPHILS % (AUTO) 0 % (1-7); LYMPHOCYTES # (AUTO) 0.97 x10^3/uL (1-3.4); LYMPHOCYTES % (AUTO) 15 % (22-44); MD NO; MEAN CORPUSCULAR HEMOGLOBIN 32.3 pg (27.5-34.5); MEAN CORPUSCULAR HGB CONC 32.5 g/dL (33.2-36.2); MEAN CORPUSCULAR VOLUME 99.3 fL (81-97); MEAN PLATELET VOLUME 7.5 fL (7.4-10.4); MONOCYTES # (AUTO) 0.08 x10^3/uL (0.2-0.8); MONOCYTES % (AUTO) 1 % (2-9); NEUTROPHILS # (AUTO) 5.53 x10^3/uL (1.8-6.8); NEUTROPHILS % (AUTO) 84 % (42-75); PLATELET COUNT 222 x10^3/uL (130-400); RED BLOOD COUNT 4.97 x10^6/uL (4.38-5.82); RED CELL DISTRIBUTION WIDTH 18.8 % (9.4-14.8)
[2018-06-22 05:08] LABS: ALBUMIN 2.2 g/dL (3.4-5.0); ANION GAP 4 mmol/L (5-15); CALCIUM 8.2 mg/dL (8.5-10.1); CHLORIDE 107 mmol/L (98-107)
[2018-06-22 05:11] LABS: ALANINE AMINOTRANSFERASE 19 U/L (12-78); ALKALINE PHOSPHATASE 125 U/L (45-117); BILIRUBIN,TOTAL 0.5 mg/dL (0.2-1.0); CREATININE 1.27 mg/dL (0.7-1.3); TOTAL PROTEIN 8.1 g/dL (6.4-8.2); VANCOMYCIN,TROUGH 18.9 mcg/mL (5.0-10.0)
[2018-06-22] MEDS: LEVOTHYROXINE 25 MCG TABLET PO SCH (06:31)
[2018-06-22 07:01] VITALS: BP 124/88
[2018-06-22] MEDS: CARISOPRODOL 350 MG TABLET PO SCH ×2 (09:00→21:45)
[2018-06-22] MEDS: GABAPENTIN 300 MG CAPSULE PO SCH ×3 (10:10→22:29)
[2018-06-22] MEDS: OXYcodone IR 5MG TABLET PO PRN ×3 (10:10→23:57)
[2018-06-22] MEDS: FLUDROCORTISONE 0.1 MG TABLET PO SCH (10:10)
[2018-06-22] MEDS: DIAZEPAM 5 MG TABLET PO PRN (10:10)
[2018-06-22] MEDS: DIGOXIN 0.125 MG TABLET PO SCH (10:10)
[2018-06-22] MEDS: APIXABAN 5 MG TABLET PO SCH ×2 (10:10→21:45)
[2018-06-22] MEDS ORDERED: FUROSEMIDE 20 MG/2 ML IV ONE (11:00)
[2018-06-22 13:51] VITALS: BP 104/68
[2018-06-22 20:11] VITALS: BP 105/62
[2018-06-23 01:02] VITALS: BP 104/69
[2018-06-23] MEDS: PIPERACILLIN/TAZO/PMX 3.375GM 50 ML IV SCH ×3 (01:54→19:53)
[2018-06-23 05:49] LABS: BASOPHILS # (AUTO) 0.05 x10^3/uL (0-0.1); BASOPHILS % (AUTO) 0 % (0-1); EOSINOPHILS # (AUTO) 0.01 x10^3/uL (0-0.4); EOSINOPHILS % (AUTO) 0 % (1-7); LYMPHOCYTES # (AUTO) 2.42 x10^3/uL (1-3.4); LYMPHOCYTES % (AUTO) 15 % (22-44); MD NO; MEAN CORPUSCULAR HEMOGLOBIN 31.7 pg (27.5-34.5); MEAN CORPUSCULAR HGB CONC 32.2 g/dL (33.2-36.2); MEAN CORPUSCULAR VOLUME 98.4 fL (81-97); MEAN PLATELET VOLUME 7.5 fL (7.4-10.4); MONOCYTES % (AUTO) 6 % (2-9); NEUTROPHILS # (AUTO) 12.21 x10^3/uL (1.8-6.8); NEUTROPHILS % (AUTO) 78 % (42-75); PLATELET COUNT 216 x10^3/uL (130-400); RED BLOOD COUNT 4.76 x10^6/uL (4.38-5.82); RED CELL DISTRIBUTION WIDTH 18.2 % (9.4-14.8)
[2018-06-23 05:52] LABS: ANION GAP 0 mmol/L (5-15); CHLORIDE 107 mmol/L (98-107); CREATININE 1.13 mg/dL (0.7-1.3)
[2018-06-23] MEDS: LEVOTHYROXINE 25 MCG TABLET PO SCH (06:22)
[2018-06-23 07:25] VITALS: BP 90/60
[2018-06-23] MEDS: OXYcodone IR 5MG TABLET PO PRN ×3 (08:44→19:53)
[2018-06-23] MEDS: GABAPENTIN 300 MG CAPSULE PO SCH ×3 (08:45→19:53)
[2018-06-23] MEDS: FLUDROCORTISONE 0.1 MG TABLET PO SCH (08:45)
[2018-06-23] MEDS: APIXABAN 5 MG TABLET PO SCH ×2 (08:45→19:53)
[2018-06-23] MEDS: CARISOPRODOL 350 MG TABLET PO SCH ×2 (08:45→19:53)
[2018-06-23] MEDS: DIGOXIN 0.125 MG TABLET PO SCH (08:46)
[2018-06-23 13:19] VITALS: BP 95/63
[2018-06-23] MEDS: VANCOMYCIN 1,600 MG in SODIUM CHLORIDE 0.9% 250 ML IV SCH (17:51)
[2018-06-23 19:16] VITALS: BP 104/68
[2018-06-23] MEDS ORDERED: MONTELUKAST 10 MG TABLET PO SCH (21:00)
[2018-06-24] MEDS: PIPERACILLIN/TAZO/PMX 3.375GM 50 ML IV SCH ×2 (02:00→10:36)
[2018-06-24 04:00] VITALS: BP 100/64
[2018-06-24] MEDS: LEVOTHYROXINE 25 MCG TABLET PO SCH (05:23)
[2018-06-24 05:53] LABS: ALBUMIN 1.8 g/dL (3.4-5.0); ANION GAP 3 mmol/L (5-15); CHLORIDE 106 mmol/L (98-107); CREATININE 0.96 mg/dL (0.7-1.3)
[2018-06-24 05:54] LABS: BASOPHILS # (AUTO) 0.03 x10^3/uL (0-0.1); BASOPHILS % (AUTO) 0 % (0-1); EOSINOPHILS # (AUTO) 0.03 x10^3/uL (0-0.4); EOSINOPHILS % (AUTO) 0 % (1-7); LYMPHOCYTES # (AUTO) 2.37 x10^3/uL (1-3.4); LYMPHOCYTES % (AUTO) 23 % (22-44); MD NO; MEAN CORPUSCULAR HEMOGLOBIN 31.9 pg (27.5-34.5); MEAN CORPUSCULAR HGB CONC 32.5 g/dL (33.2-36.2); MEAN CORPUSCULAR VOLUME 98.2 fL (81-97); MEAN PLATELET VOLUME 7.6 fL (7.4-10.4); MONOCYTES # (AUTO) 0.71 x10^3/uL (0.2-0.8); MONOCYTES % (AUTO) 7 % (2-9); NEUTROPHILS # (AUTO) 7.09 x10^3/uL (1.8-6.8); NEUTROPHILS % (AUTO) 69 % (42-75); PLATELET COUNT 183 x10^3/uL (130-400); RED BLOOD COUNT 4.52 x10^6/uL (4.38-5.82); RED CELL DISTRIBUTION WIDTH 18.1 % (9.4-14.8)
[2018-06-24 07:07] VITALS: BP 117/79
[2018-06-24] MEDS: APIXABAN 5 MG TABLET PO SCH (08:21)
[2018-06-24] MEDS: DIGOXIN 0.125 MG TABLET PO SCH (08:21)
[2018-06-24] MEDS: GABAPENTIN 300 MG CAPSULE PO SCH (08:21)
[2018-06-24] MEDS: FLUDROCORTISONE 0.1 MG TABLET PO SCH (08:21)
[2018-06-24] MEDS: CARISOPRODOL 350 MG TABLET PO SCH (08:22)
[2018-06-24] MEDS ORDERED: FLUTICASONE/VILANTEROL 200-25MCG/INH INH SCH (09:00)
[2018-06-24] MEDS: VANCOMYCIN 1,600 MG in SODIUM CHLORIDE 0.9% 250 ML IV SCH (10:35)
[2018-06-24] MEDS ORDERED: VANC1VIA3 IA (11:54)
[2018-06-24] MEDS ORDERED: PIPE4.5F2 IV (11:54)
[2018-06-24] MEDS ORDERED: PRED20TA PO (11:54)
[2018-06-24] MEDS ORDERED: FLUT1BLS INH (12:00)
[2018-06-24] MEDS ORDERED: MONT10TA9 PO (12:00)
[2018-06-24 12:08] VITALS: BP 100/61
== END 2018-06-24 16:50 | DRG 177 ==
LOC: ED 23:59 → EDIP 06-19 01:47 → 3NE 06-19 03:17
PROVIDERS: ADMIT Family Medicine; ATTEND Family Medicine
DX: J15.29 Pneumonia due to other staphylococcus (principal); J96.21 Acute and chronic respiratory failure with hypoxia; I50.30 Unspecified diastolic (congestive) heart failure; J44.0 Chronic obstructive pulmonary disease with (acute) lower respiratory infection; J44.1 Chronic obstructive pulmonary disease with (acute) exacerbation; E03.9 Hypothyroidism, unspecified; G89.4 Chronic pain syndrome; F17.200 Nicotine dependence, unspecified, uncomplicated; R91.1 Solitary pulmonary nodule; I95.89 Other hypotension; Z82.49 Family history of ischemic heart disease and other diseases of the circulatory system; Z86.711 Personal history of pulmonary embolism; Z91.19 Patient's noncompliance with other medical treatment and regimen; Z95.0 Presence of cardiac pacemaker; Z99.81 Dependence on supplemental oxygen; Z79.01 Long term (current) use of anticoagulants; Z79.899 Other long term (current) drug therapy
CPT/HCPCS: 36415; 71045; 71275; 80048; 80053; 80202; 82040; 83605; 83880; 84132; 84443; 84484; 85025; 85379; 85610; 85730; 86480; 87015; 87040; 87070; 87081; 87116; 87205; 87206; 87806; 93005; 93306; 93970; 94640; 96365; J2543; J3370; J7620; Q9967; G0475; J1940; J2930; J7030; J7050; J7512

== ENCOUNTER 2018-07-27 13:57 | Inpatient (IN) | payer MEDICARE ==
[~2018-07-27] VITALS: Ht 198.1 cm; Wt 88.8 kg
[~2018-07-27 13:57] MED LIST changes: +FLUT1BLS INH; +MONT10TA9 PO; +PIPE4.5F2 IV; +VANC1VIA3 IA; +[UNRECOGNIZED DRUG - CODE] PO
[2018-07-27] MEDS ORDERED: DIGO250T PO (14:08)
[2018-07-27] MEDS ORDERED: OXYC10TA6 PO (14:10)
[2018-07-27] MEDS ORDERED: prednisone (14:13)
[2018-07-27] MEDS ORDERED: POTA20TA89 PO ×2 (14:14→14:51)
[2018-07-27] MEDS ORDERED: LINE600T37 PO (14:15)
[2018-07-27] MEDS ORDERED: MONT10TA6 PO (14:15)
[2018-07-27] MEDS ORDERED: SODIUM CHLORIDE 0.9% 1,000ML IVBOLUS ONE (14:30)
[2018-07-27] MEDS ORDERED: SODIUM CHLORIDE FLUSH 10ML SYR IVF ONE (14:30)
[2018-07-27] MEDS ORDERED: MORP15TA PO (14:49)
[2018-07-27 14:50] LABS: MEAN CORPUSCULAR HEMOGLOBIN 31.8 pg (27.5-34.5); MEAN CORPUSCULAR HGB CONC 32.8 g/dL (33.2-36.2); MEAN CORPUSCULAR VOLUME 96.8 fL (81-97); MEAN PLATELET VOLUME 7.5 fL (7.4-10.4); PLATELET COUNT 220 x10^3/uL (130-400); RED BLOOD COUNT 4.65 x10^6/uL (4.38-5.82); RED CELL DISTRIBUTION WIDTH 18.1 % (9.4-14.8)
[2018-07-27 14:52] LABS: INTERNATIONAL NORMALIZED RATIO 1.07 (0.93-1.1); PROTHROMBIN TIME 11.1 Seconds (9.6-11.5)
[2018-07-27 14:55] LABS: ALANINE AMINOTRANSFERASE 63 U/L (12-78); ALBUMIN 2.7 g/dL (3.4-5.0); CALCIUM 8.6 mg/dL (8.5-10.1)
[2018-07-27 15:05] LABS: ANION GAP 6 mmol/L (5-15); CHLORIDE 99 mmol/L (98-107)
[2018-07-27 15:05] LABS: MICROSCOPIC AUTO
[2018-07-27 15:09] LABS: ALKALINE PHOSPHATASE 80 U/L (45-117); BILIRUBIN,TOTAL 0.6 mg/dL (0.2-1.0); TOTAL PROTEIN 7.7 g/dL (6.4-8.2)
[2018-07-27] MEDS ORDERED: METO25TA35 PO (15:13)
[2018-07-27] MEDS ORDERED: SODIUM CHLORIDE 0.9%, 500ML IVBOLUS ONE (15:30)
[2018-07-27] MEDS ORDERED: PLEASE ENTER HEIGHT AND WEIGHT MC SCH (15:30)
[2018-07-27] MEDS ORDERED: VANCOMYCIN 1,700 MG in SODIUM CHLORIDE 0.9% 250 ML IV ONE (15:30)
[2018-07-27] MEDS ORDERED: POLYETHYLENE GLYCOL 17 GM PACKET PO PRN (15:30)
[2018-07-27] MEDS ORDERED: VANCOMYCIN PER PHARMACY IV ONE (15:30)
[2018-07-27] MEDS ORDERED: ONDANSETRON 2MG/ML, 2ML IVPush PRN (15:30)
[2018-07-27] MEDS ORDERED: ONDANSETRON ODT 4 MG PO PRN (15:30)
[2018-07-27] MEDS ORDERED: DOCUSATE 100 MG CAPSULE PO PRN (15:30)
[2018-07-27] MEDS ORDERED: CEFEPIME 2 GM in DEXTROSE 5% 100 ML IV ONE (15:30)
[2018-07-27] MEDS ORDERED: LABETALOL 5MG/ML, 20ML IVPush PRN (15:30)
[2018-07-27] MEDS ORDERED: FLUT1AER INH (15:35)
[2018-07-27 15:37] LABS: BASOPHILS # (AUTO) 0.06 x10^3/uL (0-0.1); BASOPHILS % (AUTO) 0 % (0-1); EOSINOPHILS # (AUTO) 0.03 x10^3/uL (0-0.4); EOSINOPHILS % (AUTO) 0 % (1-7); LYMPHOCYTES # (AUTO) 0.83 x10^3/uL (1-3.4); LYMPHOCYTES % (AUTO) 5 % (22-44); MD SCAN; MONOCYTES # (AUTO) 0.77 x10^3/uL (0.2-0.8); MONOCYTES % (AUTO) 5 % (2-9); NEUTROPHILS # (AUTO) 14.54 x10^3/uL (1.8-6.8); NEUTROPHILS % (AUTO) 90 % (42-75)
[2018-07-27] MEDS ORDERED: IPRA3AMP30 IH (15:37)
[2018-07-27] MEDS ORDERED: FAMO-79 PO (15:38)
[2018-07-27] MEDS ORDERED: FURO-92 PO (15:40)
[2018-07-27] MEDS ORDERED: MICO14CR2 TP (15:42)
[2018-07-27] MEDS ORDERED: ONDA4TAB12 PO (15:44)
[2018-07-27] MEDS ORDERED: NITR0.4T28 SL (15:44)
[2018-07-27] MEDS ORDERED: DIAZEPAM 5 MG TABLET ONE (15:47)
[2018-07-27] MEDS ORDERED: GABAPENTIN 300 MG CAPSULE ONE (15:47)
[2018-07-27] MEDS ORDERED: OXYcodone/APAP 10/325MG TABLET ONE (15:47)
[2018-07-27] MEDS ORDERED: DIAZEPAM 5 MG TABLET PO ONE (16:00)
[2018-07-27] MEDS ORDERED: OXYcodone/APAP 10/325MG TABLET PO ONE (16:00)
[2018-07-27] MEDS ORDERED: GABAPENTIN 300 MG CAPSULE PO ONE (16:00)
[2018-07-27] MEDS ORDERED: DIAZEPAM 10 MG TABLET PO PRN (16:30)
[2018-07-27] MEDS ORDERED: ONDANSETRON 4 MG TABLET PO PRN (16:30)
[2018-07-27] MEDS ORDERED: NITROGLYCERIN 0.4 MG BOTTLE (25 TABS) SL PRN (16:30)
[2018-07-27] MEDS ORDERED: VANCOMYCIN PER PHARMACY MC PRN (16:30)
[2018-07-27] MEDS ORDERED: PIPERACILLIN/TAZO/PMX 3.375GM 50 ML IV SCH (16:30)
[2018-07-27 16:33] LABS: FREE T4 (FREE THYROXINE) 0.98 ng/dL (0.76-1.46)
[2018-07-27] MEDS: ALBUTEROL/IPRATROPIUM 2.5MG/0.5MG, 3 ML NPPB SCH ×2 (17:10→21:40)
[2018-07-27] MEDS ORDERED: ALBUTEROL/IPRATROPIUM 2.5MG/0.5MG, 3 ML ONE (17:12)
[2018-07-27 19:12] VITALS: BP 106/70
[2018-07-27] MEDS ORDERED: ALBUTEROL/IPRATROPIUM 2.5MG/0.5MG, 3 ML NPPB PRN (19:30)
[2018-07-27] MEDS ORDERED: PHARMACOKINETIC CONSULTATION MC ONE (19:30)
[2018-07-27] MEDS ORDERED: PHARMACOKINETIC MONITORING MC PRN (19:30)
[2018-07-27] MEDS ORDERED: VANCOMYCIN 1,600 MG in SODIUM CHLORIDE 0.9% 250 ML IV SCH (20:00)
[2018-07-27 22:01] VITALS: BP 111/73
[2018-07-27] MEDS: morphine SULFATE 15 MG TAB.IR PO SCH (22:03)
[2018-07-27] MEDS: GABAPENTIN 300 MG CAPSULE PO SCH (22:04)
[2018-07-27] MEDS: APIXABAN 5 MG TABLET PO SCH (22:04)
[2018-07-27] MEDS: methylPREDNISolone SOD SUCC 125 MG/2 ML IVPush SCH (22:29)
[2018-07-27] MEDS: LACTATED RINGERS 1,000 ML IV SCH (22:34)
[2018-07-27] MEDS: OXYcodone IR 5MG TABLET PO SCH (22:43)
[2018-07-27] MEDS: PIPERACILLIN/TAZO/PMX 3.375GM 50 ML IV SCH (23:06)
[2018-07-28] VITALS (9 sets, daily range): BP systolic 111–142; BP diastolic 66–85
[2018-07-28] MEDS: PIPERACILLIN/TAZO/PMX 3.375GM 50 ML IV SCH ×4 (04:50→21:55)
[2018-07-28 05:25] LABS: BASOPHILS # (AUTO) 0.03 x10^3/uL (0-0.1); BASOPHILS % (AUTO) 0 % (0-1); EOSINOPHILS % (AUTO) 0 % (1-7); LYMPHOCYTES # (AUTO) 0.47 x10^3/uL (1-3.4); LYMPHOCYTES % (AUTO) 4 % (22-44); MD NO; MEAN CORPUSCULAR HEMOGLOBIN 32.4 pg (27.5-34.5); MEAN CORPUSCULAR HGB CONC 33.3 g/dL (33.2-36.2); MEAN CORPUSCULAR VOLUME 97.2 fL (81-97); MEAN PLATELET VOLUME 7.4 fL (7.4-10.4); MONOCYTES # (AUTO) 0.18 x10^3/uL (0.2-0.8); MONOCYTES % (AUTO) 2 % (2-9); NEUTROPHILS # (AUTO) 10.45 x10^3/uL (1.8-6.8); NEUTROPHILS % (AUTO) 94 % (42-75); PLATELET COUNT 188 x10^3/uL (130-400); RED BLOOD COUNT 4.19 x10^6/uL (4.38-5.82); RED CELL DISTRIBUTION WIDTH 18.3 % (9.4-14.8)
[2018-07-28 05:37] LABS: CHLORIDE 103 mmol/L (98-107)
[2018-07-28 05:57] LABS: ALANINE AMINOTRANSFERASE 55 U/L (12-78); ALBUMIN 2.5 g/dL (3.4-5.0); ALKALINE PHOSPHATASE 62 U/L (45-117); ANION GAP 9 mmol/L (5-15); BILIRUBIN,TOTAL 0.4 mg/dL (0.2-1.0); CALCIUM 8.5 mg/dL (8.5-10.1); CREATININE 0.88 mg/dL (0.7-1.3); TOTAL PROTEIN 7.2 g/dL (6.4-8.2)
[2018-07-28] MEDS: LEVOTHYROXINE 25 MCG TABLET PO SCH (06:02)
[2018-07-28] MEDS: OXYcodone IR 5MG TABLET PO SCH ×5 (06:09→21:49)
[2018-07-28] MEDS: methylPREDNISolone SOD SUCC 125 MG/2 ML IVPush SCH ×3 (06:10→21:55)
[2018-07-28] MEDS: LACTATED RINGERS 1,000 ML IV SCH (06:16)
[2018-07-28] MEDS: ALBUTEROL/IPRATROPIUM 2.5MG/0.5MG, 3 ML NPPB SCH ×4 (06:50→19:09)
[2018-07-28] MEDS ORDERED: SODIUM PHOSPHATE 30 MMOL in SODIUM CHLORIDE 0.45% 500 ML IV ONE (07:30)
[2018-07-28] MEDS ORDERED: SODIUM PHOSPHATE 4 MEQ/ML IV SCH (07:30)
[2018-07-28] MEDS: APIXABAN 5 MG TABLET PO SCH ×2 (09:54→21:48)
[2018-07-28] MEDS: DIGOXIN 0.25 MG TABLET PO SCH (09:54)
[2018-07-28] MEDS: FLUDROCORTISONE 0.1 MG TABLET PO SCH (09:54)
[2018-07-28] MEDS: GABAPENTIN 300 MG CAPSULE PO SCH ×3 (09:54→21:48)
[2018-07-28] MEDS: FLUTICASONE/VILANTEROL 100-25MCG/INH INH SCH (09:54)
[2018-07-28] MEDS: morphine SULFATE 15 MG TAB.IR PO SCH ×4 (09:54→20:00)
[2018-07-28] MEDS: MONTELUKAST 10 MG TABLET PO SCH (09:54)
[2018-07-28] MEDS: MICONAZOLE CRM 2%, 15GM TP SCH (09:55)
[2018-07-28] MEDS ORDERED: VANCOMYCIN 1,700 MG in SODIUM CHLORIDE 0.9% 250 ML IV SCH (10:00)
[2018-07-28] MEDS ORDERED: FUROSEMIDE 40 MG/4 ML IV ONE (16:00)
[2018-07-28] MEDS: FUROSEMIDE 20 MG/2 ML IV SCH (21:48)
[2018-07-29 01:56] VITALS: BP 120/81
[2018-07-29] MEDS ORDERED: VANCOMYCIN 1,400 MG in SODIUM CHLORIDE 0.9% 250 ML IV SCH (04:00)
[2018-07-29] MEDS: PIPERACILLIN/TAZO/PMX 3.375GM 50 ML IV SCH (04:13)
[2018-07-29 06:10] VITALS: BP 137/82
[2018-07-29] MEDS: LEVOTHYROXINE 25 MCG TABLET PO SCH (06:11)
[2018-07-29] MEDS: methylPREDNISolone SOD SUCC 125 MG/2 ML IVPush SCH ×3 (06:11→22:28)
[2018-07-29] MEDS: OXYcodone IR 5MG TABLET PO SCH ×4 (06:11→22:28)
[2018-07-29 06:36] VITALS: BP 126/86
[2018-07-29] MEDS: MICONAZOLE CRM 2%, 15GM TP SCH (07:12)
[2018-07-29] MEDS: ALBUTEROL/IPRATROPIUM 2.5MG/0.5MG, 3 ML NPPB SCH ×4 (08:00→20:00)
[2018-07-29 08:06] LABS: MEAN CORPUSCULAR HEMOGLOBIN 32.1 pg (27.5-34.5); MEAN CORPUSCULAR HGB CONC 33.1 g/dL (33.2-36.2); MEAN PLATELET VOLUME 7.5 fL (7.4-10.4); PLATELET COUNT 241 x10^3/uL (130-400); RED BLOOD COUNT 4.33 x10^6/uL (4.38-5.82); RED CELL DISTRIBUTION WIDTH 18.4 % (9.4-14.8)
[2018-07-29 08:13] LABS: ALBUMIN 2.7 g/dL (3.4-5.0); ANION GAP 5 mmol/L (5-15); CALCIUM 9.3 mg/dL (8.5-10.1); CHLORIDE 101 mmol/L (98-107)
[2018-07-29 08:16] LABS: ALANINE AMINOTRANSFERASE 56 U/L (12-78); ALKALINE PHOSPHATASE 77 U/L (45-117); BILIRUBIN,TOTAL 0.7 mg/dL (0.2-1.0); CREATININE 1.02 mg/dL (0.7-1.3); TOTAL PROTEIN 7.5 g/dL (6.4-8.2)
[2018-07-29 08:38] LABS: BASOPHILS % (AUTO) 0 % (0-1); EOSINOPHILS % (AUTO) 0 % (1-7); LYMPHOCYTES # (AUTO) 0.66 x10^3/uL (1-3.4); LYMPHOCYTES % (AUTO) 4 % (22-44); MD SCAN; MONOCYTES # (AUTO) 0.48 x10^3/uL (0.2-0.8); MONOCYTES % (AUTO) 3 % (2-9); NEUTROPHILS # (AUTO) 14.76 x10^3/uL (1.8-6.8); NEUTROPHILS % (AUTO) 93 % (42-75)
[2018-07-29] MEDS: FUROSEMIDE 20 MG/2 ML IV SCH ×2 (08:44→21:50)
[2018-07-29] MEDS: FLUTICASONE/VILANTEROL 100-25MCG/INH INH SCH (08:44)
[2018-07-29] MEDS: AMPICILLIN/SULBACTAM 3 GM in SODIUM CHLORIDE 0.9% 100 ML IV SCH ×3 (08:44→22:27)
[2018-07-29] MEDS: MONTELUKAST 10 MG TABLET PO SCH (08:45)
[2018-07-29] MEDS: FLUDROCORTISONE 0.1 MG TABLET PO SCH (08:45)
[2018-07-29] MEDS: DOXYCYCLINE 100MG TABLET PO SCH ×2 (08:45→22:27)
[2018-07-29] MEDS: APIXABAN 5 MG TABLET PO SCH ×2 (08:45→22:27)
[2018-07-29] MEDS: DIGOXIN 0.25 MG TABLET PO SCH (08:45)
[2018-07-29] MEDS: GABAPENTIN 300 MG CAPSULE PO SCH ×3 (08:45→22:27)
[2018-07-29] MEDS: morphine SULFATE 15 MG TAB.IR PO SCH ×3 (08:45→22:28)
[2018-07-29 13:09] VITALS: BP 124/77
[2018-07-29 20:51] VITALS: BP 123/69
[2018-07-30 02:42] VITALS: BP 123/81
[2018-07-30] MEDS: AMPICILLIN/SULBACTAM 3 GM in SODIUM CHLORIDE 0.9% 100 ML IV SCH (04:30)
[2018-07-30] MEDS: methylPREDNISolone SOD SUCC 125 MG/2 ML IVPush SCH (06:23)
[2018-07-30] MEDS: OXYcodone IR 5MG TABLET PO SCH ×4 (06:23→21:21)
[2018-07-30] MEDS: LEVOTHYROXINE 25 MCG TABLET PO SCH (06:24)
[2018-07-30] MEDS: ALBUTEROL/IPRATROPIUM 2.5MG/0.5MG, 3 ML NPPB SCH ×4 (07:00→17:27)
[2018-07-30 08:58] LABS: MEAN CORPUSCULAR HEMOGLOBIN 32.5 pg (27.5-34.5); MEAN CORPUSCULAR HGB CONC 33.7 g/dL (33.2-36.2); MEAN CORPUSCULAR VOLUME 96.4 fL (81-97); MEAN PLATELET VOLUME 7.6 fL (7.4-10.4); PLATELET COUNT 262 x10^3/uL (130-400); RED BLOOD COUNT 4.47 x10^6/uL (4.38-5.82); RED CELL DISTRIBUTION WIDTH 17.8 % (9.4-14.8)
[2018-07-30] MEDS ORDERED: METOPROLOL TARTRATE 25 MG TABLET PO SCH (09:00)
[2018-07-30 09:02] LABS: ANION GAP 6 mmol/L (5-15); CALCIUM 9.1 mg/dL (8.5-10.1); CHLORIDE 99 mmol/L (98-107)
[2018-07-30 09:53] LABS: BASOPHILS # (AUTO) 0.03 x10^3/uL (0-0.1); BASOPHILS % (AUTO) 0 % (0-1); EOSINOPHILS # (AUTO) 0.01 x10^3/uL (0-0.4); EOSINOPHILS % (AUTO) 0 % (1-7); LYMPHOCYTES # (AUTO) 0.42 x10^3/uL (1-3.4); LYMPHOCYTES % (AUTO) 3 % (22-44); MD SCAN; MONOCYTES # (AUTO) 0.77 x10^3/uL (0.2-0.8); MONOCYTES % (AUTO) 6 % (2-9); NEUTROPHILS # (AUTO) 11.88 x10^3/uL (1.8-6.8); NEUTROPHILS % (AUTO) 91 % (42-75)
[2018-07-30] MEDS: FLUTICASONE/VILANTEROL 100-25MCG/INH INH SCH (09:54)
[2018-07-30] MEDS: METOPROLOL TARTRATE 25 MG TABLET PO SCH ×2 (09:54→17:01)
[2018-07-30] MEDS: FLUDROCORTISONE 0.1 MG TABLET PO SCH (09:54)
[2018-07-30] MEDS: FUROSEMIDE 20 MG/2 ML IV SCH (09:54)
[2018-07-30] MEDS: GABAPENTIN 300 MG CAPSULE PO SCH ×3 (09:54→21:21)
[2018-07-30] MEDS: DIGOXIN 0.25 MG TABLET PO SCH (09:54)
[2018-07-30] MEDS: morphine SULFATE 15 MG TAB.IR PO SCH ×3 (09:55→21:21)
[2018-07-30] MEDS: MICONAZOLE CRM 2%, 15GM TP SCH (09:55)
[2018-07-30] MEDS: APIXABAN 5 MG TABLET PO SCH ×2 (09:55→21:21)
[2018-07-30] MEDS: MONTELUKAST 10 MG TABLET PO SCH (09:55)
[2018-07-30 10:00] VITALS: BP 106/65
[2018-07-30] MEDS ORDERED: PIPERACILLIN/TAZO/PMX 3.375GM 50 ML IV SCH (10:00)
[2018-07-30] MEDS ORDERED: LINEZOLID PMX 600MG/300ML 300 ML IV SCH (10:00)
[2018-07-30 12:23] VITALS: BP 131/84
[2018-07-30] MEDS ORDERED: DIAZEPAM 5 MG TABLET PO PRN (14:00)
[2018-07-30] MEDS: PIPERACILLIN/TAZO 3.375 GM in SODIUM CHLORIDE 0.9% 50 ML IV SCH ×2 (17:01→23:25)
[2018-07-30 19:31] VITALS: BP 115/74
[2018-07-31 01:01] VITALS: BP 117/70
[2018-07-31] MEDS: LEVOTHYROXINE 25 MCG TABLET PO SCH (05:22)
[2018-07-31] MEDS: METOPROLOL TARTRATE 25 MG TABLET PO SCH ×2 (05:22→17:25)
[2018-07-31] MEDS: PIPERACILLIN/TAZO 3.375 GM in SODIUM CHLORIDE 0.9% 50 ML IV SCH ×3 (05:22→18:10)
[2018-07-31] MEDS: OXYcodone IR 5MG TABLET PO SCH ×4 (05:23→20:08)
[2018-07-31 05:56] LABS: BASOPHILS % (AUTO) 0 % (0-1); EOSINOPHILS % (AUTO) 0 % (1-7); LYMPHOCYTES # (AUTO) 0.79 x10^3/uL (1-3.4); LYMPHOCYTES % (AUTO) 7 % (22-44); MD NO; MEAN CORPUSCULAR HEMOGLOBIN 33.2 pg (27.5-34.5); MEAN CORPUSCULAR HGB CONC 34.1 g/dL (33.2-36.2); MEAN CORPUSCULAR VOLUME 97.4 fL (81-97); MEAN PLATELET VOLUME 7.7 fL (7.4-10.4); MONOCYTES # (AUTO) 1.03 x10^3/uL (0.2-0.8); MONOCYTES % (AUTO) 9 % (2-9); NEUTROPHILS # (AUTO) 9.68 x10^3/uL (1.8-6.8); NEUTROPHILS % (AUTO) 84 % (42-75); PLATELET COUNT 231 x10^3/uL (130-400); RED BLOOD COUNT 4.05 x10^6/uL (4.38-5.82); RED CELL DISTRIBUTION WIDTH 17.8 % (9.4-14.8)
[2018-07-31 06:04] LABS: ALBUMIN 2.6 g/dL (3.4-5.0); ANION GAP 5 mmol/L (5-15); CALCIUM 8.7 mg/dL (8.5-10.1); CHLORIDE 100 mmol/L (98-107)
[2018-07-31 06:07] LABS: ALANINE AMINOTRANSFERASE 56 U/L (12-78); ALKALINE PHOSPHATASE 122 U/L (45-117); BILIRUBIN,TOTAL 0.3 mg/dL (0.2-1.0); CREATININE 1.07 mg/dL (0.7-1.3); TOTAL PROTEIN 6.7 g/dL (6.4-8.2)
[2018-07-31] MEDS: ALBUTEROL/IPRATROPIUM 2.5MG/0.5MG, 3 ML NPPB SCH ×4 (06:40→19:36)
[2018-07-31 08:29] VITALS: BP 133/88
[2018-07-31] MEDS: MONTELUKAST 10 MG TABLET PO SCH (08:35)
[2018-07-31] MEDS: DIGOXIN 0.25 MG TABLET PO SCH (08:35)
[2018-07-31] MEDS: APIXABAN 5 MG TABLET PO SCH ×2 (08:35→20:07)
[2018-07-31] MEDS: FLUDROCORTISONE 0.1 MG TABLET PO SCH (08:35)
[2018-07-31] MEDS: morphine SULFATE 15 MG TAB.IR PO SCH ×3 (08:35→21:32)
[2018-07-31] MEDS: GABAPENTIN 300 MG CAPSULE PO SCH ×3 (08:36→20:08)
[2018-07-31] MEDS: FUROSEMIDE 20 MG/2 ML IV SCH (08:36)
[2018-07-31] MEDS: MICONAZOLE CRM 2%, 15GM TP SCH (09:00)
[2018-07-31 12:30] VITALS: BP 108/76
[2018-07-31] MEDS: GUAIFENESIN 200 MG TABLET PO SCH ×2 (16:39→20:07)
[2018-07-31 16:43] VITALS: BP 107/66
[2018-07-31] MEDS: FLUTICASONE/VILANTEROL 100-25MCG/INH INH SCH (17:25)
[2018-07-31 20:00] VITALS: BP 109/67
[2018-07-31] MEDS: PIPERACILLIN/TAZO/PMX 3.375GM 50 ML IV SCH (23:18)
[2018-08-01 02:00] VITALS: BP 125/78
[2018-08-01 05:12] LABS: BASOPHILS # (AUTO) 0.03 x10^3/uL (0-0.1); BASOPHILS % (AUTO) 0 % (0-1); EOSINOPHILS # (AUTO) 0.02 x10^3/uL (0-0.4); EOSINOPHILS % (AUTO) 0 % (1-7); LYMPHOCYTES # (AUTO) 1.17 x10^3/uL (1-3.4); LYMPHOCYTES % (AUTO) 12 % (22-44); MD NO; MEAN CORPUSCULAR HGB CONC 33.3 g/dL (33.2-36.2); MEAN CORPUSCULAR VOLUME 95.9 fL (81-97); MEAN PLATELET VOLUME 7.3 fL (7.4-10.4); MONOCYTES # (AUTO) 0.63 x10^3/uL (0.2-0.8); MONOCYTES % (AUTO) 7 % (2-9); NEUTROPHILS # (AUTO) 7.62 x10^3/uL (1.8-6.8); NEUTROPHILS % (AUTO) 81 % (42-75); PLATELET COUNT 217 x10^3/uL (130-400); RED CELL DISTRIBUTION WIDTH 17.4 % (9.4-14.8)
[2018-08-01 05:13] LABS: ALANINE AMINOTRANSFERASE 60 U/L (12-78); ALBUMIN 2.5 g/dL (3.4-5.0); ANION GAP 4 mmol/L (5-15); CALCIUM 8.4 mg/dL (8.5-10.1); CHLORIDE 99 mmol/L (98-107); CREATININE 1.08 mg/dL (0.7-1.3)
[2018-08-01 05:15] LABS: ALKALINE PHOSPHATASE 89 U/L (45-117); BILIRUBIN,TOTAL 0.8 mg/dL (0.2-1.0); TOTAL PROTEIN 6.7 g/dL (6.4-8.2)
[2018-08-01 05:36] VITALS: BP 132/83
[2018-08-01] MEDS: PIPERACILLIN/TAZO/PMX 3.375GM 50 ML IV SCH ×2 (05:36→11:33)
[2018-08-01] MEDS: LEVOTHYROXINE 25 MCG TABLET PO SCH (05:36)
[2018-08-01] MEDS: OXYcodone IR 5MG TABLET PO SCH ×3 (05:36→15:54)
[2018-08-01] MEDS: METOPROLOL TARTRATE 25 MG TABLET PO SCH (05:37)
[2018-08-01] MEDS: GUAIFENESIN 200 MG TABLET PO SCH ×3 (05:37→15:54)
[2018-08-01] MEDS: ALBUTEROL/IPRATROPIUM 2.5MG/0.5MG, 3 ML NPPB SCH ×3 (07:18→15:45)
[2018-08-01 07:19] VITALS: BP 126/82
[2018-08-01] MEDS: MONTELUKAST 10 MG TABLET PO SCH (08:33)
[2018-08-01] MEDS: morphine SULFATE 15 MG TAB.IR PO SCH ×2 (08:33→15:54)
[2018-08-01] MEDS: DIGOXIN 0.25 MG TABLET PO SCH (08:34)
[2018-08-01] MEDS: FLUDROCORTISONE 0.1 MG TABLET PO SCH (08:34)
[2018-08-01] MEDS: FUROSEMIDE 20 MG/2 ML IV SCH (08:34)
[2018-08-01] MEDS: APIXABAN 5 MG TABLET PO SCH (08:34)
[2018-08-01] MEDS: GABAPENTIN 300 MG CAPSULE PO SCH ×2 (08:34→15:54)
[2018-08-01] MEDS: FLUTICASONE/VILANTEROL 100-25MCG/INH INH SCH (08:34)
[2018-08-01] MEDS: MICONAZOLE CRM 2%, 15GM TP SCH (08:35)
[2018-08-01] MEDS ORDERED: ALBUTEROL/IPRATROPIUM 2.5MG/0.5MG, 3 ML ONE ×2 (11:07→15:29)
[2018-08-01 13:05] VITALS: BP 100/67
[2018-08-01] MEDS ORDERED: PIPE3.373 IVPB (14:13)
== END 2018-08-01 17:07 | DRG 871 ==
LOC: ED 14:26 → EDIP 15:14 → 5SO 19:04 → 4WST 07-31 15:44
PROVIDERS: ADMIT Hospitalist; ATTEND Hospitalist
PROC: 0T9B70Z Drainage of Bladder with Drainage Device, Via Natural or Artificial Opening (ICD-10-PCS; principal; 2018-07-27)
DX: A41.9 Sepsis, unspecified organism (principal); J96.01 Acute respiratory failure with hypoxia; E43 Unspecified severe protein-calorie malnutrition; J15.0 Pneumonia due to Klebsiella pneumoniae; J44.0 Chronic obstructive pulmonary disease with (acute) lower respiratory infection; I50.40 Unspecified combined systolic (congestive) and diastolic (congestive) heart failure; D68.69 Other thrombophilia; E27.40 Unspecified adrenocortical insufficiency; J98.11 Atelectasis; J44.1 Chronic obstructive pulmonary disease with (acute) exacerbation; R65.20 Severe sepsis without septic shock; I95.89 Other hypotension; E03.9 Hypothyroidism, unspecified; R73.9 Hyperglycemia, unspecified; R74.0 Nonspecific elevation of levels of transaminase and lactic acid dehydrogenase [LDH]; E87.5 Hyperkalemia; G89.4 Chronic pain syndrome; I48.91 Unspecified atrial fibrillation; Y95 Nosocomial condition; Z79.01 Long term (current) use of anticoagulants; Z86.711 Personal history of pulmonary embolism; Z82.49 Family history of ischemic heart disease and other diseases of the circulatory system; Z87.01 Personal history of pneumonia (recurrent); Z95.0 Presence of cardiac pacemaker; Z68.22 Body mass index [BMI] 22.0-22.9, adult; Z87.891 Personal history of nicotine dependence
CPT/HCPCS: 36415; 51702; 71045; 71250; 80048; 80053; 80162; 81001; 83605; 83735; 84100; 84145; 84439; 84443; 85025; 85610; 87040; 87070; 87077; 87186; 87205; 93005; 94640; 99285; G0378; J0295; J2020; J2543; J3370; J7620; J1940; J2930; J7030; J7040; J7050; J7120; J7512